=== PATIENT | female | born 1935 | race African-American/Black ===

== ENCOUNTER 2018-05-12 08:10 | Inpatient (IN) | payer OTHER ==
[2018-05-12] VITALS (32 sets, daily range): BP systolic 85–152; BP diastolic 42–83
[~2018-05-12] VITALS: Ht 160 cm; Wt 52.2 kg
--- NOTE | ~2018-05-12 | HC ---
[facility] [place] [address] CONSULTATION Name: CARUSOMEJIA PENA Room #: 242-P ADM IN M.R.#: [id number] Admission: 05/12/18 ������������������ Attend Phys: Scott Salazar MD Discharge: ������������������ Date of : 33 Report #: [id number] THIS REPORT FOR: //name// CC: Scott Salazar Physician staff [facility] HISTORY OF PRESENT ILLNESS: The patient is an 82-year-old female. She was brought in by her daughter and EMS for some progressive dyspnea and shortness of breath. I do not have any of the old records, but was apparently first diagnosed with heart failure 5 years ago at [facility]. She had been fairly stable on minimal medications until hospitalized in January for a month with heart failure and apparently some other issues, went to rehab and then home, now with the daughter. Having big issues with constipation in the last month. Saw primary care doctor, which gave her some antibiotics for a tooth pulled for emergent tooth infection a month ago and then subsequently had progressive shortness of breath recently. She is otherwise alert, oriented, relatively independent. Her chest x-ray revealing opacities in both lung due to possible pneumonia and/or pulmonary edema, cardiac enlargement and small pleural effusions. The patient's BNP is 18,000, troponin 0.41, probably a mismatch and not true ischemia. EKG exhibited sinus tachycardia. She has no history of coronary disease or prior infarcts. Apparently, there is history of heart muscle problem according to the daughter. No prior coronary interventions that the daughter is aware of. LABORATORY DATA: Potassium of 5.0, creatinine of 0.8. The BNP was 18,386. The troponin was 0.4. H and H was 11 and 36, white count 9.8, platelets 287. There was no left shift. ALLERGIES: No known drug allergies. PAST MEDICAL AND SURGICAL HISTORY: Positive for heart failure, hypertension, reflux, DJD. The daughter says no prior surgeries. SOCIAL HISTORY: She is . She has 6 children. She is living with one daughter. Was never a smoker. No significant alcohol use. REVIEW OF SYSTEMS: Not obtainable, although she is arousable. She is on BiPAP. Mildly acidotic on her blood gas. PHYSICAL EXAMINATION: GENERAL: She is arousable. VITAL SIGNS: She is on BiPAP. Pulse is 100. Blood pressure 106/60. HEENT: Eyes reveal xanthelasmas. Pharynx shows dry mucous membranes. NECK: Upstrokes that are preserved. There is a BiPAP in place. LUNGS: Somewhat coarse anteriorly. HEART TONES: Distant S1, S2, tachycardic. [facility] [address] [place] [address] CONSULTATION Name: ROSI CARUSOCYNDY Room #: [facility] ADM IN M.R.#: [id number] Admission: 05/12/18 ������������������ Attend Phys: Scott Salazar MD Discharge: ������������������ Date of : 33 Report #: [id number] ABDOMEN: Slightly protuberant, bowel sounds are noted. EXTREMITIES: Reveal trace of edema. Distal pulses diminished, but intact. NEUROLOGIC: Appears to move all extremities, but not really able to evaluate due to her somnolence. ASSESSMENT: 1. Hypoxemia, possible multifactorial. 2. Acute decompensation of probably a mixed systolic and diastolic heart failure. 3. Hypertension. 4. Possible pneumonia. 5. Degenerative joint disease. RECOMMENDATIONS AND PLAN: IV Lasix b.i.d. We will obtain an echo Doppler. In the CCU, O2 support, Pulmonary eval may be helpful. Obtain old records from [place] from the hospitalization in January-February. I do not perceive this is actually an ischemic event with significant epicardial coronary disease, but more due to the hypoxemia. I suspect this is actually multifactorial in her demise. Although she has been alert and oriented, relatively independent, she seems somewhat frail 82-year-old female. We will continue to follow with you. I should note her home medications have been lisinopril, Coreg and omeprazole. Thank you for asking me to assist in the care of this patient. ��������������������������������������������� ���������������������������������������� By: ��������������������������������������������� 1016 0024 Pk Sheth MD, FACC /nt
[2018-05-12 08:44] LABS: BE(vivo) 3.4 mmol/L (-2 to +3); HCO3 31.5 mmol/L (22.0-26.0); PCO2 67.1 mmHg (35.0-45.0); PO2 72.8 mmHg (80.0-100.0); sO2 92.4 % (92.0-98.0)
[2018-05-12 08:46] LABS: ABSOLUTE NEUTROPHILS 8.1 thou/uL (1.4-8.2); BASOPHILS 0.4 % (0.0-2.0); HEMATOCRIT 36.6 % (37.0-47.0); HEMOGLOBIN 11.3 gm/dL (12.0-15.0); LYMPHOCYTES 8.8 % (24.0-44.0); MCH 27.7 pg (26.0-34.0); MCV 89.6 fL (80.0-100.0); MONOCYTES 7.8 % (1.0-8.0); PLATELET COUNT 287 thou/uL (150-400); RBC 4.09 mil/uL (4.20-5.00); RDW 16.8 % (10.5-14.5); WBC 9.8 thou/uL (4.0-11.0)
[2018-05-12 09:02] LABS: APTT 27.5 Seconds (24.5-32.8); INR 1.1
[2018-05-12 09:04] LABS: CREATININE 0.8 mg/dL (0.6-1.0)
[2018-05-12 09:12] LABS: ALBUMIN 3.1 g/dL (3.4-5.0); MAGNESIUM 1.9 mg/dL (1.8-2.4); TOTAL BILIRUBIN 0.3 mg/dL (<0.1-1.0); TOTAL PROTEIN 9.3 g/dL (6.4-8.2); TROPONIN-I 0.41 ng/mL (<0.06)
[2018-05-12 09:41] LABS: URINE BILIRUBIN NEGATIVE (Negative); URINE BLOOD TRACE (Negative); URINE CLARITY CLEAR; URINE COLOR YELLOW; URINE GLUCOSE-RANDOM* NEGATIVE (Negative); URINE KETONES NEGATIVE (Negative); URINE NITRITE-REFLEX NEGATIVE (Negative); URINE PROTEIN (DIPSTICK) NEGATIVE (Negative); URINE UROBILINOGEN 0.2 E.U./dl (0.2-1.0)
[2018-05-12] MEDS ORDERED: LISINOPRIL5 MG PO (09:41)
[2018-05-12] MEDS ORDERED: PROTONIX40 M1 PO (09:41)
[2018-05-12] MEDS ORDERED: CARVEDILOL3.125 MG PO (09:41)
[2018-05-12] MEDS ORDERED: VENTOLIN HFA 1818 GM INH (09:41)
[2018-05-12] MEDS ORDERED: ASPIR 8181 MG PO (09:41)
[2018-05-12 09:43] LABS: URINE LEUKOCYTES-REFLEX 1+ (Negative)
[2018-05-12 09:51] LABS: CASTS None Seen /LPF (None Seen); MUCUS 0-3 Light strn/LPF (None Seen); SQUAMOUS 4-10 Moderate /LPF (0-3); URINE RBC 0-2 Rare /HPF (0-2); URINE WBC-REFLEX 6-15 Few /HPF (0-5)
[2018-05-12 09:52] LABS: AMORPHOUS URATES Moderate /LPF (None Seen)
[2018-05-12 12:01] LABS: BE(vivo) 6.5 mmol/L (-2 to +3); HCO3 37.8 mmol/L (22.0-26.0); PO2 75.3 mmHg (80.0-100.0); sO2 90.6 % (92.0-98.0)
[2018-05-12 12:02] LABS: PCO2 99.9 mmHg (35.0-45.0); pH 7.196 (7.360-7.450)
--- NOTE | 2018-05-12 12:16 | 2DMMODE ---
[facility] [address] [place] [address] 2 D/M-MODE ECHOCARDIOGRAM Name: SHADYMEJIA Room #: 242-P ADM IN .R.#: [id number] ������������� Admission: 05/12/18 ������������� Attend Phys: Scott Salazar MD Discharge: ��� ������������� ��� Date of : 31 Date of Service: 05/12/18 1215 �� Report #: [id number] �������� ��������������������������������������������[id number] THIS REPORT FOR: //name// APPROVED REPORT Study performed: 05/12/2018 11:25:25 EXAM: Comprehensive 2D, Doppler, and color-flow Echocardiogram Patient Location: Bedside Room #: 217 moving to ICU Status: routine BSA: 1.54 HR: 100 bpm BP: 138/78 mmHg Rhythm: Tachycardia Other Information Study Quality: Adequate/off axis apicals. Not all measurements taken. Technically limited study due to no mobility or patient cooperation. Patient on BiPap. Indications Short of breath, CHF, cardiomyopathy, elevated troponin, HTN. 2D Dimensions IVSd: 12.39 (7-11mm) LVOT Diam: 19.71 (18-24mm) LVDd: 41.51 mm PWd: 11.53 (7-11mm) Ascending Ao: 27.92 (22-36mm) LVDs: 33.05 (25-40mm) Aortic Root: 31.45 mm Aortic Valve AoV Peak Cosmo.: 1.35 m/s AO Peak Gr.: 7.32 mmHg LVOT Max P.16 mmHg LVOT Max V: 0.89 m/s DEBI Vmax: 2.00 cm2 Mitral Valve E/A Ratio: 1.1 MV Decel. Time: 125.44 ms MV E Max Cosmo.: 0.78 m/s MV A Cosmo.: 0.70 m/s MV PHT: 36.38 ms IVRT: 69.20 ms [facility] [address] [place] [address] 2 D/M-MODE [facility]CHOCARDIOGRAM [facility] Room #: 242-P ADM IN M.R.#: [id number] ������������� Admission: 05/12/18 ������������� Attend Phys: Scott Salazar MD Discharge: ��� ������������� ��� Date of : 31 Date of Service: 05/12/18 1215 �� Report #: [id number] �������� ��������������������������������������������[id number] Pulmonary Valve PV Peak Cosmo.: 0.68 m/s PV Peak Gr.: 1.85 mmHg Tricuspid Valve TR Peak Cosmo.: 2.55 m/s RAP Estimate: 15.00 mmHg TR Peak Gr.: 26.05 mmHg PA Pressure: 41.00 mmHg Left Ventricle The left ventricle is normal size. There is global hypokinesis of the left ventricle. Mild concentric left ventricular hypertrophy. Left ventricular systolic function is severely decreased. LVEF is 25-30%. Moderate diastolic dysfunction is present (pseudonormal filling). Right Ventricle Right ventricle is dilated. Right ventricle is hypokinetic. Atria Left atrium is dilated. Right atrium is dilated. Aortic Valve Aortic valve is thickened and calcified, trileaflet. Mild aortic regurgitation. There is no aortic valvular stenosis. Mitral Valve The mitral valve is normal in structure. Mild mitral regurgitation. No evidence of mitral valve stenosis. Tricuspid Valve The tricuspid valve is normal in structure. Moderate tricuspid regurgitation. Estimated PAP is 40mmHg. Pulmonic Valve The pulmonary valve is normal in structure. Mild to moderate pulmonic regurgitation. Great Vessels The aortic root is normal in size. The ascending aorta is normal in size. IVC is dilated and collapses <50% with inspiration. Pericardium There is no pericardial effusion. [facility] [address] [place] [address] 2 D/M-MODE ECHOCARDIOGRAM [facility] Room #: 242-P [facility] IN M.R.#: [id number] ������������� Admission: 05/12/18 ������������� Attend Phys: Scott Salazar MD Discharge: ��� ������������� ��� Date of : 31 Date of Service: 05/12/18 1215 �� Report #: [id number] �������� ��������������������������������������������[id number] <Conclusion> Left ventricular systolic function is severely decreased. LVEF is 25-30%. Moderate diastolic dysfunction Right ventricle is dilated. Both atria are dilated. Aortic valve is thickened and calcified, trileaflet. Mild aortic regurgitation, no stenosis. The mitral valve is normal in structure. Mild mitral regurgitation. Moderate tricuspid regurgitation. Estimated pulmonary artery pressure of 40mmHg. There is no pericardial effusion. ��������������������������������������������� <ELECTRONICALLY SIGNED> ���������������������������������������� By: Jigar Gordon MD, FACC ��������������������������������������������� 05/12/18 1215 14 14 Jigar Gordon MD, FACC /INF
--- NOTE | 2018-05-12 13:40 | NUR ---
PATIENT ARRIVED TO CCU FROM ER AROUND 1041. PATIENT LYING IN BED, LETHARGIC, BIPAP IN PLACE. CARROLL CATHETER PATENT AND SECURE. DAUGHTER IN WAITING ROOM. ECHO AT BEDSIDE. IV FLUIDS INFUSING PER ORDER. PATIENT WOULD AROUSE TO NAME FOR A SECOND THEN FALL BACK ASLEEP. NO WOUNDS NOTED. PATIENT DOES PULSE FEET IN THE BED. DR. JACQUES AT BEDSIDE SHORTLY AFTER PATIENT ARRIVED TO UNIT. RECEIVED ICU TRANSFER ORDERS. REPORT GIVEN AND PATIENT TRANSFERED TO ICU AROUND 1155.
--- NOTE | 2018-05-12 13:45 | NUR ---
FAMILY INFORMATION GIVEN TO THIS RN UPON ARRIVAL TO CCU. TIM CARUSO, DAUGHTER [phone] GIRMA NGUYEN [phone] KASSANDRARuben CARUSO, SON [phone] URIEL CARUSO, SON [phone] KATIE CARUSO, SON [phone] NABEEL CARUSO, DAUGHTER [phone]
--- NOTE | 2018-05-12 15:01 | NUR ---
ORDERS RECEIVED FOR EVAL AND TREAT HOWEVER Pt TRANSFERRED TO ICU PRIOR TO BEING SEEN. WILL HOLD ON EVAL UNTIL REORDERED WHEN Pt APPROPRIATE FOR THERAPY.
[2018-05-12 15:32] LABS: BE(vivo) 7.8 mmol/L (-2 to +3); HCO3 32.9 mmol/L (22.0-26.0); PCO2 48.7 mmHg (35.0-45.0); PO2 154.3 mmHg (80.0-100.0); pH 7.448 (7.360-7.450)
--- NOTE | 2018-05-12 20:01 | NUR ---
ASSUMED PATIENT CARE AT 1230 AFTER PATIENT TRANSFERRED FROM CCU. PATIENT PLACED ON THE VENTILATOR AND STARTED ON PROPOFOL GTT. OG TUBE ALSO PLACED TO LIS AND PICC LINE PLACED IN THE MONTSE. PATIENT WAS LETHARGIC UPON ARRIVING TO THE ICU. PATIENT TAKEN DOWN TO DO A HEAD/CHEST/ABDOMEN CT SCAN. SPOKESPERSONS UPDATED ON POC THROUGHOUT THE DAY.
--- NOTE | 2018-05-12 20:09 | NUR ---
PATIENT FAMILY TOOK PATIENTS THREE RINGS WITH THEM, LEOPOLDO TOOK THEM.
--- NOTE | 2018-05-12 21:16 | NUR ---
VASCULAR ACCESS CONSULTED FOR A PICC FOR THIS PT FOR PNEUMONIA AND VESICANT USE. PLEASE SEE INSERTION NOTE FOR DETAILS, 1ST PICC MALPOSITIONED, UNABLE TO REPOSITION AFTER CXR, OTW EXCHANED FOR NEW PICC WITH SUCCESSFUL PLACEMENT.
[2018-05-13] VITALS (85 sets, daily range): BP systolic 91–147; BP diastolic 46–82
[2018-05-13 04:51] LABS: HEMATOCRIT 33.7 % (37.0-47.0); HEMOGLOBIN 10.7 gm/dL (12.0-15.0); MCH 27.7 pg (26.0-34.0); MCHC 31.8 g/dL (28.0-37.0); MCV 87.1 fL (80.0-100.0); RBC 3.87 mil/uL (4.20-5.00); RDW 16.6 % (10.5-14.5); WBC 10.7 thou/uL (4.0-11.0)
[2018-05-13 04:55] LABS: CALCIUM 7.8 mg/dL (8.5-10.1); CREATININE 0.7 mg/dL (0.6-1.0)
[2018-05-13 05:04] LABS: POTASSIUM 3.3 mmol/L (3.5-5.1)
[2018-05-13 05:37] LABS: BE(vivo) 6.4 mmol/L (-2 to +3); HCO3 30.4 mmol/L (22.0-26.0); PCO2 41.2 mmHg (35.0-45.0); PO2 257.6 mmHg (80.0-100.0); pH 7.486 (7.360-7.450); sO2 99.6 % (92.0-98.0)
--- NOTE | 2018-05-13 06:30 | NUR ---
PT INTUBATED AND ON VENT; LIGHTLY SEDATED WITH PROPOFOL GTT. PT IS MORE RESPONSIVE THIS MORNING THAN EARLIER LAST NIGHT. LEVO GTT AT LOW RATE FOR BP SUPPORT. ASSESSMENTS AND VITALS DOCUMENTED. WILL CONTINUE TO MONITOR.
--- NOTE | 2018-05-13 08:48 | NUR ---
OT ORDERS RECEIVED. SINCE THEN Pt TRANSFERED TO ICU. WILL PLACE Pt ON HOLD UNTIL RE-ORDERED AND Pt IS APPROPRIATE FOR THERPAY.
--- NOTE | 2018-05-13 14:47 | HC ---
[facility] [address] [place] [address] CONSULTATION Name: SHADYMEJIA Room #: 242-P ADM IN M.R.#: [id number] Admission: 05/12/18 ������������������ Attend Phys: Scott Salazar MD Discharge: ������������������ Date of : 33 Report #: [id number] THIS REPORT FOR: //name// CC: Scott Salazar Physician staff [facility] REFERRAL PHYSICIAN: Dr. Salazar. REASON FOR REFERRAL: Acute respiratory failure. HISTORY OF PRESENT ILLNESS: The patient is an 82-year-old -[place] female who was brought to the Emergency Room with dyspnea. She was found to be very hypoxic. She was placed on BiPAP. A pulmonary consultation was requested. According to the family, she was recently hospitalized at [facility] for pneumonia around 01/2018. Since then, she has done fairly well. She lives at home with her daughter. She normally ambulates regularly. She has no known chronic lung disease that the daughter remembers. Last evening, the patient had complained of progressive dyspnea along with chest pain. It was advised the patient go to the Emergency Room last night, but the patient refused. This morning when she awoke when she complained of increasing dyspnea 911 was called. [place] [employer] brought the patient to the Emergency Department. On arrival, the patient was found to be in severe distress. BiPAP was placed. On arrival, the patient was felt to be moving all extremities, felt to be sleepy. The patient was admitted to the critical care tele. When I arrived to see the patient in consultation, she was quite difficult to arouse with sternal rub. She remains on BiPAP. Family members were present. She was subsequently transferred to the ICU. A followup arterial blood gas shows worsening hypercapnic respiratory failure. The patient was subsequently intubated. PAST MEDICAL HISTORY: Limited, but according to the family notable for recent pneumonia, hypertension, gastroesophageal reflux disease. PAST SURGICAL HISTORY: Unknown. ALLERGIES: None to medications. HOME MEDICATIONS: Include Ventolin HFA, Zestril, Protonix, Coreg, aspirin. FAMILY HISTORY: Noncontributory. [facility] [address] [place] [address] [facility] Room #: 242-P [facility] IN M.R.#: [id number] Admission: 05/12/18 ������������������ Attend Phys: Scott Salazar MD Discharge: ������������������ Date of : 33 Report #: [id number] SOCIAL HISTORY: No history of tobacco or alcohol use. She lives with her daughter. REVIEW OF SYSTEMS: As mentioned above, otherwise deferred as the patient is quite obtunded at this moment. PHYSICAL EXAMINATION: GENERAL: She is obtunded, on BiPAP. VITAL SIGNS: Temperature is 99.5 degrees Fahrenheit, pulse is 103, respiratory rate is 28, blood pressure 138/78 mmHg, saturation is 96%. HEENT: Normocephalic, atraumatic. NECK: Supple, without lymphadenopathy or thyromegaly. CHEST: Breath sounds are decreased due to poor effort. She is on BiPAP. No obvious wheezes. Few scattered crackles in the bases. CARDIOVASCULAR: Normal S1, S2. No murmurs or gallop. There is no JVD. There is no carotid bruit. Pulses are 2+/4+ bilaterally. ABDOMEN: Soft, nontender, no organomegaly or masses felt. GENITOURINARY: Deferred. RECTAL: Deferred. EXTREMITIES: There is no edema, cyanosis or clubbing. NEUROLOGIC: Deferred, other than the patient is quite obtunded at this time, no response to deep sternal rub. According to the ER records, she was apparently moving all extremities there. The patient had spoken up till this morning prior to presentation to Emergency Room. LABORATORY DATA: Chest x-ray shows small lung volumes, bilateral interstitial infiltrates, appears to be chronic, suggestive of pulmonary fibrosis, cardiomegaly. Scoliosis is noted. Portable chest x-ray following intubation revealed ET tube at the proximal lumen of the right main stem bronchus. ET tube was then pulled out about 2 cm. Echocardiogram showed ejection fraction of 25-30%, right ventricle was dilated. Pulmonary artery pressure measured 40 mmHg, mild aortic regurgitation. Both atria are dilated. Electrolytes are normal. Liver enzymes are mildly elevated. WBC 9800, hemoglobin is normal, platelets are normal. Troponin 0.4, albumin 3.1, arterial blood gas revealed pH 7.19, pCO2 99, pO2 75 on FiO2 of 50%. IMPRESSION: 1. [id number] hypercapnic hypoxic respiratory failure in this 82-year-old -[place] female. She was recently hospitalized for pneumonia. She has a history of hypertension and gastroesophageal reflux disease. Chest x-rays suggest possible pulmonary fibrosis. The patient's respiratory failure is likely due to underlying chronic lung disease, the patient appears to have chronic hypercapnic respiratory insufficiency, query COPD, query interstitial lung disease. She is also felt to [facility] [address] [place] [address] CONSULTATION Name: MEJIA CARUSO Room #: 284-P ADM IN Harini#: [id number] Admission: 05/12/18 ������������������ Attend Phys: Scott Salazar MD Discharge: ������������������ Date of : 33 Report #: [id number] have heart failure, which is likely contributing. With mental status change, it is unclear whether she may have cerebrovascular accident. 2. Recent hospitalization for pneumonia in January. Cannot rule out superimposed infectious process. Cover for nosocomial infections. 3. Severe cardiomyopathy with ejection fraction 30-35%, with elevated troponin, likely ischemic. The patient likely has an underlying coronary artery disease. Cardiology has been consulted. EKG shows no acute changes. Myocardial stress demand may be underlying cause for elevated troponin. 4. History of hypertension. 5. Gastroesophageal reflux disease. 6. Generalized weakness with what appears to be muscle atrophy. RECOMMENDATION: As mentioned above. The patient was urgently intubated due to worsening hypercapnic respiratory failure. She was treated for recurrent infectious process covering nosocomial infections. Bronchodilators along with corticosteroids will be initiated along with DVT and GI prophylaxis. In regards to encephalopathy, may relate to severe sepsis; however, cannot rule out other processes such of cerebrovascular accident. Recommend CT head. In terms of profound hypoxia, pulmonary embolus felt to be less likely though this needs to be considered as her presenting arterial blood gas showed pO2 of 72 while on 100% FiO2. CT chest would also help delineate possible interstitial lung disease. This was discussed with the patient's family including her daughter. It appears that the daughter may have a hard time registering all this information and clinical change. We will keep them updated. Thank you for this consultation. ��������������������������������������������� <ELECTRONICALLY SIGNED> ���������������������������������������� By: Marquez Williamson MD ��������������������������������������������� 05/13/18 1447 1442 0243 Marquez Williamson MD /nt
[2018-05-13 19:44] LABS: MAGNESIUM 1.6 mg/dL (1.8-2.4)
[2018-05-13 19:45] LABS: POTASSIUM 2.9 mmol/L (3.5-5.1)
--- NOTE | 2018-05-13 19:52 | NUR ---
CALL LABS RESULT OF POTASSIUMAND MAGNESIUM LEVEL TO NEVIN CUEVA; ORDER KCL 60 MEQ IVP AND 2 GM OF MAGNESIUM IV X 1.
--- NOTE | 2018-05-13 22:22 | NUR ---
Family visited, updates plans of cares to her daughter Albert.
[2018-05-14] VITALS (51 sets, daily range): BP systolic 102–145; BP diastolic 39–73
[2018-05-14 04:59] LABS: CALCIUM 7.6 mg/dL (8.5-10.1); CREATININE 0.6 mg/dL (0.6-1.0); MAGNESIUM 2.3 mg/dL (1.8-2.4); POTASSIUM 3.6 mmol/L (3.5-5.1)
--- NOTE | 2018-05-14 05:05 | NUR ---
CLIENT REMAINS IN THE ICU FOR RESP FAILURE AND LOWER LOBE PNEUMONIA. CLIENT CARE ASSUMED 05/13/18 @ 2230. CLIENT INTUBATED AND SEDATED FOR VENT MANAGEMENT. CLIENT IS ABLE TO NOD Y/N WHEN ASKED QUESTIONS. CLIENT IS SINUS RHYTHM W/OCC PVCS PER MONITOR. CLIENT RECIEVES LASIX IVP BID. VENT SETTINGS ARE 7.5 ET, 21.5 ATT, NPO W/Q6HR ACCU CHECKS AND LOW DOSE SSI. CLIENT OG TO LIS, CARROLL TO DD AND SKIN IS INTACT. THE CLIENT RECEIVED 40MEQ OF KCL FOR LOW K+ OF 2.9. CLIENT HAS MAINT FLUID INFUSING @ 80ML/HR PER PHYSICIAN ORDER. PLEASE SEE [employer] FOR ANY ADDITIONAL QUESTION AND/OR CONCERNS. AFIBRILE DURING THE NIGHT.
--- NOTE | 2018-05-14 13:19 | EKG ---
[address] [address] ELECTROCARDIOGRAM REPORT Name: MEJIA CARUSO Room #: 242-P ADM IN M.R.#: [id number] ������������������ Admission: 05/12/18 ������������������ Attend Phys: Scott Salazar MD Discharge: ������������������ Date of : 33 Report #: [id number] ����������������������������������������������������������������� [id number] THIS REPORT FOR: //name// [facility] ED Test Date: 2018-05-12 Test Time: 08:51:36 Pat Name: MEJIA CARUSO Department: Room: 242 Gender: F Wind Project Manager: mckinley : 1935 Requested By: Leander Cobb Order Number: [id number] MD: Jigar Gordon Measurements Intervals [place] Rate: 109 P: 65 NV: 161 QRS: -33 QRSD: 90 T: 120 QT: 324 QTc: 437 Interpretive Statements Sinus tachycardia Probable left atrial enlargement Left ventricular hypertrophy Nonspecific T abnormalities, lateral leads No previous ECG available for comparison Electronically Signed On 05-14-2018 13:19:22 CDT by Jigar Gordon [email or web address] ��������������������������������������������� <ELECTRONICALLY SIGNED> ���������������������������������������� By: Jigar Gordon MD, [facility] ��������������������������������������������� 05/14/18 1319 D: [id number] Jigar Gordon MD, FACC /EPI
--- NOTE | 2018-05-14 13:31 | EKG ---
[address] [place] [address] ELECTROCARDIOGRAM REPORT Name: MEJIA CARUSO Room #: 242-P ADM IN M.R.#: [id number] ������������������ Admission: 05/12/18 ������������������ Attend Phys: Scott Salazar MD Discharge: ������������������ Date of : 33 Report #: [id number] ����������������������������������������������������������������� [id number] THIS REPORT FOR: //name// [facility] Test Date: 2018-05-13 Test Time: 09:20:31 Pat Name: MEJIA CARUSO Department: Room: 242 P Gender: F Wiping Rag Washer: DAMIEN : 1935 Requested By: Pk Sheth Order Number: [id number] MD: Jigar Gordon Measurements Intervals [place] Rate: 67 P: 75 [place]: 144 QRS: -26 QRSD: 96 T: 197 QT: 434 QTc: 458 Interpretive Statements Sinus rhythm Atrial premature complex Abnrm T, consider ischemia, anterolateral lds No previous ECG available for comparison Electronically Signed On 05-14-2018 13:31:36 CDT by Jigar Gordon [email or web address] ��������������������������������������������� <ELECTRONICALLY SIGNED> ���������������������������������������� By: Jigar Gordon MD, [facility] ��������������������������������������������� 05/14/18 1331 D: 03/919 9 Jigar Gordon MD, FACC /EPI
[2018-05-15] VITALS (26 sets, daily range): BP systolic 111–166; BP diastolic 49–81
[2018-05-15 04:10] LABS: CALCIUM 6.3 mg/dL (8.5-10.1); CREATININE 0.4 mg/dL (0.6-1.0)
[2018-05-15 04:13] LABS: POTASSIUM 2.4 mmol/L (3.5-5.1)
[2018-05-15 05:13] LABS: HEMATOCRIT 28.5 % (37.0-47.0); MCH 27.9 pg (26.0-34.0); MCHC 31.7 g/dL (28.0-37.0); RBC 3.24 mil/uL (4.20-5.00); RDW 16.7 % (10.5-14.5); WBC 4.8 thou/uL (4.0-11.0)
[2018-05-15 05:17] LABS: BE(vivo) 0.8 mmol/L (-2 to +3); HCO3 24.1 mmol/L (22.0-26.0); PCO2 34.2 mmHg (35.0-45.0); PO2 433.9 mmHg (80.0-100.0); pH 7.466 (7.360-7.450); sO2 99.9 % (92.0-98.0)
--- NOTE | 2018-05-15 06:26 | NUR ---
PT. SLEEPING AT BED SIDE REPORT; PT ON VENTILATOR; PROPOFOL RUNNING AT 25 MCG/KG/HR; ALERT TO PERSON; ANSWER YES/ NO QUESTION; AROUND 2029 RELATIVES ARRIVED AT BED SIDE; PT. ANSWERING Y/N QUESTIONS TO RELATIVES; VS WNL THROUGH THE NIGHT; HR ON THE 50'S- LOW 40'S; PROPOFOL TITRATE FROM 25 TO 15; FOUZIA HAIR SPRING WINDER SR/SB WITH FEW PVC'S; POTASSIUM 2.4; NO NOTIFIED; ORDERS RECEIVED; TURNED Q2H; MOUTH CARE PROVIDED; ASSESSMENT CHARGED; FOLLOWING POC; WILL PASS ON REPORT.
--- NOTE | 2018-05-15 10:48 | NUR ---
Nutrition: Pt npo x 3 days in ICU. Nsg reports low output from NG. REC consider initiate tube feeds of Jevity 1.5 to reach goal rate of 40 mL/hr with current dosing of propofol.
[2018-05-15 15:09] LABS: CALCIUM 7.6 mg/dL (8.5-10.1); CREATININE 0.5 mg/dL (0.6-1.0); POTASSIUM 3.4 mmol/L (3.5-5.1)
--- NOTE | 2018-05-15 18:34 | NUR ---
PATIENT ON LIGHT SEDATION, ABLE TO FOLLOW SIMPLE COMMANDS. SINUS BRADYCARDIA ON MAINTENANCE AND CUSTODIAN SUPERVISOR. ON 30%FIO2. TUBE FEEDINGS STARTED, PATIENT TOLERATING. CARROLL PATENT WITH ADEQUATE OUTPUT. BLOOD SUGAR MONITORED. FAMILY AND PATIENT UPDATED ON THE PLAN OF CARE. NO SIGNS OF ACUTE DISTRESS NOTED AT THIS TIME. WILL CONTINUE TO MONITOR.
[2018-05-16] VITALS (32 sets, daily range): BP systolic 118–156; BP diastolic 51–82
[2018-05-16 05:35] LABS: HEMATOCRIT 32.6 % (37.0-47.0); HEMOGLOBIN 10.1 gm/dL (12.0-15.0); MCH 27.2 pg (26.0-34.0); MCHC 31.1 g/dL (28.0-37.0); MCV 87.4 fL (80.0-100.0); RBC 3.73 mil/uL (4.20-5.00); RDW 16.7 % (10.5-14.5); WBC 4.9 thou/uL (4.0-11.0)
[2018-05-16 05:40] LABS: CALCIUM 7.4 mg/dL (8.5-10.1); CREATININE 0.5 mg/dL (0.6-1.0); POTASSIUM 3.2 mmol/L (3.5-5.1)
--- NOTE | 2018-05-16 07:18 | NUR ---
PT LIGHTLY SEDATED ON PROPOFOL, FOLLOWS COMMANDS. VENT SETTINGS UNCHANGED, ADEQUATE OXYGENATION. SR TO SB ON THE MONITOR, OTHER VITALS STABLE. PT TOLERATING TUBE FEEDINGS.URINE OUTPUT 300 OVERNIGHT.IVF INFUSING.
[2018-05-16 08:58] LABS: BE(vivo) 5.9 mmol/L (-2 to +3); HCO3 30.4 mmol/L (22.0-26.0); PCO2 44.1 mmHg (35.0-45.0); PO2 101.4 mmHg (80.0-100.0); pH 7.457 (7.360-7.450); sO2 97.9 % (92.0-98.0)
--- NOTE | 2018-05-16 18:18 | NUR ---
PATIENT ALERT AND ORIENTED, ON LIGHT SEDATION. SINUS RHYTHM TO SINUS BRADYCARDIA ON HORSES OR MULES TEAMSTER. ON VENTILATIOR 30% FIO2. WEANING TRIAL COMPLETED TODAY, PATIENT TOLERATED WELL. TUBE FEEDINGS AT GOAL RATE. CARROLL PATENT AND DRAINING. BLOOD SUGAR MONITORED. PATIENT ABLE TO WRITE NEEDS/CONCERNS, FOLLOWS COMMANDS APPROPRIATELY. FAMILY AND PATIENT UPDATED ON THE PLAN OF CARE. NO SIGNS OF ACUTE DISTRESS NOTED AT THIS TIME. WILL CONTINUE TO MONITOR.
[2018-05-17] VITALS (30 sets, daily range): BP systolic 98–141; BP diastolic 51–96
[2018-05-17 05:24] LABS: BE(vivo) 5.7 mmol/L (-2 to +3); HCO3 30.1 mmol/L (22.0-26.0); PCO2 43.3 mmHg (35.0-45.0); sO2 97.9 % (92.0-98.0)
[2018-05-17 06:46] LABS: ABSOLUTE NEUTROPHILS 4.3 thou/uL (1.4-8.2); BASOPHILS 0.1 % (0.0-2.0); HEMATOCRIT 32.5 % (37.0-47.0); HEMOGLOBIN 10.2 gm/dL (12.0-15.0); LYMPHOCYTES 12.6 % (24.0-44.0); MCH 27.6 pg (26.0-34.0); MCHC 31.3 g/dL (28.0-37.0); MCV 88.2 fL (80.0-100.0); MONOCYTES 6.9 % (1.0-8.0); PLATELET COUNT 231 thou/uL (150-400); POLYS 80.4 % (36.0-66.0); RBC 3.69 mil/uL (4.20-5.00); WBC 5.3 thou/uL (4.0-11.0)
[2018-05-17 06:56] LABS: APTT 25.5 Seconds (24.5-32.8); FIBRINOGEN 255.1 mg/dL (210-360); INR 1.1; PROTIME 11.7 Seconds (9.3-11.4)
[2018-05-17 07:07] LABS: CALCIUM 7.6 mg/dL (8.5-10.1); CREATININE 0.5 mg/dL (0.6-1.0); POTASSIUM 3.7 mmol/L (3.5-5.1)
--- NOTE | 2018-05-17 17:00 | NUR ---
PT ADMITTED RELATED TO CHF, PNEUMONIA, RESP FAILURE. CM REVIEWED CHART AND SPOKE WITH CARE TEAM. CM MET WITH PT AT BEDSIDE THIS DAY PT IS ON VENT BUT IS ABLE TO COMMUNICATE BY NODDING AND WRITING. CM ROLE INTRODUCED. PT INDICATED THAT HER PCP AND CONTACTS WERE CORRECT. PT ASKED THAT CM CONTACT HER DTR TIM. CM CALLED TIM AND SHE INDICATED THAT PT HAD BEEN STAYING WITH HER AT HER HOUSE IN [facility] [employer] SHE INDICATED THAT PRIOR TO THAT PT HAD LIVED INDEPENDENTLY IN [place]. TIM INDICATED THAT THERE ARE 5 STEPS TO ENTER THE HOME AND 12 STEPS INSIDE. SHE INDICATED THAT PT HAD RECENTLY BEEN ON SERVICE WITH [facility]. SHE INDICATED PT HAD USED A CANE TO ASSIST WITH MOBILITY ORGANIC SEARCH LEAD. TIM INDICATED THAT THEY HOPE THAT PT WILL BE ABLE TO RETURN HOME WITH HER ONCE MEDICALLY STABLE. CM TO FOLLOW INDICATED WITH DC PLANNING.
--- NOTE | 2018-05-17 19:14 | NUR ---
PATIENT ALERT AND ORIENTED, ABLE TO WRITE OUT NEEDS. PROPOFOL OFF SINCE NOON. SINUS RHYTHM/SINUS BRADYCARDIA ON BRICK LOADER. ON VENTILATOR, FIO2 30%. TOLERATING TUBE FEEDING GOAL RATE. CARROLL PATENT AND ADEQUATE OUTPUT. FAMILY AND PATIENT UPDATED ON THE PLAN OF CARE. NO SIGNS OF ACUTE DISTRESS NOTED AT THIS TIME. WILL CONTINUE TO MONITOR.
[2018-05-18] VITALS (24 sets, daily range): BP systolic 118–151; BP diastolic 51–81
--- NOTE | 2018-05-18 00:05 | NUR ---
Multiple family members visited pt julián. They are concerning of her bx result which is pending and when she will be able to extubates. I have updates plans of cares and treatments to her daughters.
[2018-05-18 04:41] LABS: HEMATOCRIT 33.6 % (37.0-47.0); HEMOGLOBIN 10.4 gm/dL (12.0-15.0); MCH 27.2 pg (26.0-34.0); MCV 87.8 fL (80.0-100.0); RBC 3.82 mil/uL (4.20-5.00); WBC 6.9 thou/uL (4.0-11.0)
[2018-05-18 04:46] LABS: CALCIUM 7.9 mg/dL (8.5-10.1); CREATININE 0.5 mg/dL (0.6-1.0); POTASSIUM 3.3 mmol/L (3.5-5.1)
--- NOTE | 2018-05-18 05:40 | NUR ---
P remains stable in this shift. No sedative are given in this shift. Continue to be on vent. She seems to be syed very well. Very little secretion via ETT. Syed TF very well, no bowel movement atleast 5 days per record. She denies of any N/V. ABD mildly distended. VSS. Continue to monitor any changes.
--- NOTE | 2018-05-18 18:40 | NUR ---
PATIENT ALERT, ABLE TO FOLLOW COMMANDS AND WRITE OUT NEEDS. SINUS RHYTHM/BRADYCARDIA ON WELDER APPRENTICE COMBINATION. ON VENTILATOR RESTING COMFORTABLLY, FIO2 30%. TOLERATING TUBE FEEDINGS. CARROLL PATENT AND DRAINING. BLOOD SUGAR MONITORED. PATIENT AND FAMILY UPDATED ON THE PLAN OF CARE, NO SIGNS OF ACUTE DISTRESS NOTED AT THIS TIME. WILL CONTINUE TO MONITOR.
[2018-05-19] VITALS (24 sets, daily range): BP systolic 118–164; BP diastolic 55–96
--- NOTE | 2018-05-19 03:14 | NUR ---
ASSUMED CARE OF PATIENT AT 1900. VSS, AFEBRILE. ALERT AND ORIENTED. ANSWERS QUESTIONS APPROPRIATELY, FOLLOWS COMMANDS. ABLE TO ASSIST WITH TURNS. FAMILY AT BEDSIDE, UPDATED BRIEFLY. BATH GIVEN, TURNED Q2. PLAN TO REMOVE RESTRAINTS IN AM IF PATIENT ABLE TO REMAIN COOPERATIVE AND NOT IMPULSIVE.
[2018-05-19 05:29] LABS: BE(vivo) 9.3 mmol/L (-2 to +3); HCO3 33.9 mmol/L (22.0-26.0); PCO2 46.3 mmHg (35.0-45.0); PO2 116.9 mmHg (80.0-100.0); pH 7.483 (7.360-7.450); sO2 98.5 % (92.0-98.0)
[2018-05-19 09:25] LABS: CALCIUM 8.4 mg/dL (8.5-10.1); CREATININE 0.6 mg/dL (0.6-1.0); POTASSIUM 3.5 mmol/L (3.5-5.1)
--- NOTE | 2018-05-19 10:07 | PATH ---
[facility] [place] [address] PATHOLOGY RPT PROCEDURE Name: CARUSOMEJIA MCKENZIE Room #: 242-P ADM IN M.R.#: [id number] ������������������ Admission: 05/12/18 ������������������ Date of : 31 Discharge: Report #: [id number] Path Case #: [id number] [facility] Accession Number: [id number] . 01 Material submitted: . LT THYROID . 01 Clinical history: . CHF, pneumonia, resp failure . 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 - Negative for nuclear features of papillary thyroid carcinoma. (IUV:flight coordinator; 05/18/2018) MBR/05/18/2018 . 02 Comment: The differential diagnosis includes a mixed colloid nodule with predominant Hurthle cell features, a Hurthle cell adenoma, as well as mixed macro and microfollicular adenoma with focal Hurthle cell features. Please note nature of this sample precludes evaluation for follicular carcinoma. Sample may not be entirely territory account representative. Correlate clinically and followup as indicated. (IUV:flight coordinator; 05/18/2018) . 02 Electronically signed: . Cassy Castro MD, Pathologist NPI- [id number] . 01 Gross description: . The specimen is received in formalin, labeled "CarusoBella mckenziesheldon, Lt thyroid" and consists of a few delicate needle cores of foss tissue measuring 0.8 x 0.1 x 0.1 cm which are entirely submitted in A1. (SDY; 05/17/2018) SYU/SYU . 02 Pathologist provided ICD-10: E07.89 . 02 CPT . 258470 Specimen Comment: A courtesy copy of this report has been sent to Specimen Comment: [phone], . Specimen Comment: Report sent to / DR MAC Specimen Comment: A duplicate report has been [place] [address] PATHOLOGY RPT PROCEDURE Name: MEJIA CARUSO Room #: 242-P [facility] IN M.R.#: [id number] ������������������ Admission: 05/12/18 ������������������ Date of : 33 Discharge: Report #: [id number] Path Case #: [id number] updates. Performed at: 01 [facility] [address], [place], [place] [id number] MD Kris Davis MD Phone: [phone] Performed at: [address] [id number] MD Cassy Castro MD Phone: [phone]
--- NOTE | 2018-05-19 13:08 | PATH ---
[facility] [address] [place] [address] PATHOLOGY RPT PROCEDURE Name: MEJIA CARUSO Room #: 242-P ADM IN M.R.#: [id number] ������������������ Admission: 05/12/18 ������������������ Date of : 33 Discharge: Report #: [id number] Path Case #: [id number] Note LCA Accession Number: [id number] TESTS RESULT FLAG UNITS REF RANGE LAB Clinician Provided Cytology Information No. of containers..01 Other (Miscellaneous) Source: NECK FNA DIAGNOSIS: NECK FNA INCONCLUSIVE. BETHESDA CATEGORY III. FOLLICULAR LESION OF UNDETERMINED SIGNIFICANCE. SPECIMEN CONSISTS OF SCANT FOLLICULAR CELLS WITH SCANT COLLOID. THE DIFFERENTIAL DIAGNOSIS INCLUDES CELLULAR ADENOMATOID NODULE AND FOLLICULAR NEOPLASM. THIS INTERPRETATION INCLUDES EVALUATION OF A CELL BLOCK. Comment: Examination shows scant cells present on air-dried smears. The follicular cells are present in microfollicles and show Hurthle cell morphology. Scant dense colloid is identified. Nuclear features of papillary thyroid carcinoma are not present. The differential diagnosis includes an adenomatoid nodule with focal Hurthle cell change, a Hurthle cell adenoma as well as a carcinoma. Nature of this specimen precludes evaluation for a carcinoma. Please note sample may not be field representatives director. Correlate clinically and follow-up as indicated. The portion of specimen received in the RNA Retain Vial is sent for molecular analysis per protocol due to the diagnosis rendered. A separate report will follow; refer to the same. The concurrent needle core biopsy tissue, [id number] showed similar findings. refer to a separate report for details. This case was coreviewed by Dr. Huan Bourgeois who concurs with my interpretation. Pathologist ICD10: 02 R89.6, E04.1 Signed out by: Cassy Castro MD, Pathologist NPI- [id number] Performed by: Trini Martel, Border Patrol Officer ([facility]) Gross description: 01 20ML, RED, CLOUDY /LCS FLAG LEGEND: L-Low Normal,H-High Normal,LL-Alert Low,HH-Alert High <-Panic Low,>-Panic High,A-Abnormal,AA-Critical Abnormal [address] [address] PATHOLOGY RPT PROCEDURE Name: MEJIA CARUSO Room #: 242-P ADM IN M.R.#: [id number] ������������������ Admission: 05/12/18 ������������������ Date of : 33 Discharge: Report #: [id number] Path Case #: [id number] Performed at: [address] [place] [address] Kris Davis MD, [address] [address] Cassy Castro MD, Specimen Comment: A courtesy copy of this report has been sent to Specimen Comment: [phone], . Specimen Comment: Report sent to / DR MAC Performed at: [address], [place], [place] [id number] MD Kris Davis MD Phone: [phone]
--- NOTE | 2018-05-19 18:22 | NUR ---
PATIENT ALERT AND ORIENTED X4, NO COMPLAINTS OF PAIN. ON ROOM AIR. TOLERATING MECHANICAL GROUNDED DIET. CARROLL PATIENT AND DRAINING. PATIENT EXTOBATED AT 0925, NO SIGNS OF RESPIRATORY DISTRESS. DISCUSSED THE PLAN OF CARE WITH PATIENT AND FAMILY. DR. LOPEZ NOTIFIED THAT FAMILY WOULD LIKE TO MEET ON 05/20/18 TO DISCUSS FURTHER PLANNING. NO SIGNS OF ACUTE DISTRESS NOTED AT THIS TIME. WILL CONTINUE TO MONITOR.
[2018-05-20] VITALS (15 sets, daily range): BP systolic 126–154; BP diastolic 56–119
[2018-05-20 06:46] LABS: CALCIUM 8.7 mg/dL (8.5-10.1); CREATININE 0.6 mg/dL (0.6-1.0)
--- NOTE | 2018-05-20 07:46 | NUR ---
PT HAD RESTFUL NIGHT. PT REMAINED ON RA FOR MAJORITY OF SHIFT BUT REQUIRED 2L NC AROUND 0530 FOR SATS 70-80S BUT CARRYING ON CONVERSATION STATING SHE FELT FINE. PT CONTINUED WITH RECEIVING IV ABX TREATMENTS. AM LABS REVIEWED. SR ON MONITOR.
--- NOTE | 2018-05-20 13:49 | NUR ---
PT ARRIVED ON UNIT FROM ICU AT 1300. PT ALERT XS 4 LUNGS CTA BS XS4. CARROLL CATH WITH CLEAR YELLOW URINE IN CARROLL BAG. ROOM AIR NO COUGH OR RESP DISTRESS. PT EATING [facility] GROUND DIET LUNCH HAS THIN LIQUIDS. PT PLEASANT AND COOPERATIVE WITH CARE.
[2018-05-21 03:00] VITALS: BP 143/68
--- NOTE | 2018-05-21 03:04 | NUR ---
PT LYING IN BED. DENIES PAIN. RESTING COMFORTABLY. NO NEEDS VOICED. CALL LIGHT WITHIN REACH. WILL CONTINUE TO PROVIDE FREQUENT OBSERVATION.
[2018-05-21 08:14] LABS: CALCIUM 8.8 mg/dL (8.5-10.1); CREATININE 0.7 mg/dL (0.6-1.0); POTASSIUM 3.4 mmol/L (3.5-5.1)
[2018-05-21 09:17] LABS: HEMATOCRIT 37.8 % (37.0-47.0); MCH 27.5 pg (26.0-34.0); MCHC 31.7 g/dL (28.0-37.0); MCV 86.9 fL (80.0-100.0); RBC 4.35 mil/uL (4.20-5.00); RDW 16.9 % (10.5-14.5); WBC 6.5 thou/uL (4.0-11.0)
--- NOTE | 2018-05-21 11:24 | NUR ---
CARROLL CATH DCD AT THIS TIME HAD 900 CC IN CARROLL BAG
[2018-05-21 19:22] VITALS: BP 120/57
--- NOTE | 2018-05-22 05:18 | NUR ---
PT. AOX4; RELATIVE AT THE BED SIDE DURING REPORT; DURING ASSESSMENT NO C/O PAIN; EATING SNACK; EXPLAINED HS MEDICATION; ABLE TO REST MOST OF THE NIGHT WITH EYES CLOSE; AROUND MIDNIGHT PT ASKED IF NEED TO VOID; ST "NO"; AT 0300 PT. CHECKED; BED WET; BED CHANGE; HAD SMALL BM; SOFT; BROWN; NO C/O PAIN THROUGH THE NIGHT; ASSESSMENT CHARGED; FOLLOWING POC; WILL PASS ON REPORT.
[2018-05-22 05:19] VITALS: BP 132/52
[2018-05-22 05:46] LABS: CALCIUM 7.5 mg/dL (8.5-10.1); CREATININE 0.6 mg/dL (0.6-1.0); MAGNESIUM 1.7 mg/dL (1.8-2.4)
[2018-05-22 05:51] LABS: POTASSIUM 2.7 mmol/L (3.5-5.1)
[2018-05-22 05:53] LABS: HEMOGLOBIN 10.7 gm/dL (12.0-15.0); MCH 27.8 pg (26.0-34.0); MCHC 31.5 g/dL (28.0-37.0); MCV 88.1 fL (80.0-100.0); RBC 3.85 mil/uL (4.20-5.00); RDW 17.3 % (10.5-14.5); WBC 6.3 thou/uL (4.0-11.0)
--- NOTE | 2018-05-22 09:10 | NUR ---
PT IS A&0X4, VERY [place], USES CALL LIGHT FOR NEEDS, TURN Q2H YET SHE DOES MAKE SOME POSIION CHANGES HERSELF. STRONG GIP, GOOD APPETITE, LAST BM TODAY, C/O GENERALIZED ALL OVER PAIN, HAS TRIPLE LUMEN PICC LINE W/K+RUNNING. WILL DRAW LABS HOUR P THIS RUN
--- NOTE | 2018-05-22 14:35 | NUR ---
Nutrition: Pt seen for F/U. Extubated, no longer in ICU or on TF. Diet advanced to mechanically altered ground. Reports good appetite, intake 25-50%, however nsg reports >50%. Current wt 115 lbs, UBW 115-120 lbs. Requested Ensure, will order. Otherwise, moving to low nutrition risk.
[2018-05-22 14:53] VITALS: BP 128/78
--- NOTE | 2018-05-22 17:39 | NUR ---
spoke with patient and son present. Patient unable to work with therapy today. She reports she is staying at [facility], her dtr. She reports Albert works nights and grandson stays with her. She hopes to dc home but appears open to post acute care. she has been at [facility] in past. However now that staying at [facility] possible post acute care close to her [facility], [facility]. Therapy evals in process.
--- NOTE | 2018-05-22 19:23 | NUR ---
GAVE REPORT TO JOANIE ON PT AND TRANSFERRED DOWNSTAIRS IN W/C ACCOMPANIED B SON, CHART, AND MED BIN MEDS. PLACED HOLD ACKNOWLEDGE ON HER MAGNESIUM ABOUT AN HOUR PRIOR. ZOYSN RUNNING VIA PICC LINE. K+ HELD PER DR JOHNSON WITH NURSE DRAW AT 20:00 FOR ANOTHER CHECK. PT FINISHED UP MEAL BEFORE SHE WENT DOWN TO SICU.
[2018-05-22 19:45] VITALS: BP 139/68
[2018-05-22 19:59] LABS: CALCIUM 9.3 mg/dL (8.5-10.1); CREATININE 0.8 mg/dL (0.6-1.0); POTASSIUM 3.9 mmol/L (3.5-5.1)
--- NOTE | 2018-05-23 05:11 | NUR ---
Assumed pt. care at 1900. Pt remains A&Ox4; Swallows meds whole w/o difficulty. Remains cont. B&B. Ambulates to bathroom w/ stand by asst and asst of walker; gait unsteady. Blood sugars WNL. Remains on lovenox therapy; no s/s of bleeding noted. Continues on IVABT; no adverse reactions noted. Triple lumen noted to RUE; Infused ABT/flushed w/o difficulty. Breathing txs, as ordered, w/o difficulty. Small BM noted on this shift. Patient has no c/o pain or discomfort. No s/s of acute distress noted. Po fluids encouraged. Will continue to monitor.
[2018-05-23 06:34] LABS: HEMATOCRIT 35.4 % (37.0-47.0); HEMOGLOBIN 11.1 gm/dL (12.0-15.0); MCH 27.6 pg (26.0-34.0); MCHC 31.3 g/dL (28.0-37.0); MCV 88.1 fL (80.0-100.0); RBC 4.01 mil/uL (4.20-5.00); WBC 9.5 thou/uL (4.0-11.0)
[2018-05-23 06:44] LABS: CALCIUM 8.9 mg/dL (8.5-10.1); CREATININE 0.6 mg/dL (0.6-1.0); POTASSIUM 4.2 mmol/L (3.5-5.1)
[2018-05-23 07:28] VITALS: BP 144/69
--- NOTE | 2018-05-23 10:37 | NUR ---
ZULEYKA reviewed chart and spoke with nursing and attending physician. [facility] and is progressing towards goals for discharge. Recommendation made for pt to go to post-acute for continued rehab services and medical mgmt. ZULEYKA spoke with pt's dtr, Albert, via phone to provide update and discuss post-acute placement. ZULEYKA reviewed in-network SNF list with Albert. Albert requests referral to be sent to [facility] due to location. operations planner to send referral. Will need insurance authorization. ZULEYKA is following to assist as needed with discharge planning.
--- NOTE | 2018-05-23 12:43 | NUR ---
ASSUMED CARE OF PATIENT THIS MORNING. PATIENT IS A&OX4. SHE IS HARD OF HEARING. PATIENT GETS UP WITH MINIMUM ASSIST AND WALKER. SHE DOES NOT COMPLAIN OF ANY PAIN. SHE WORKS WITH THERAPY TO HELP WITH HER MOBILITY. SHE IS ON A LOW DOSE SLIDING SCALE FOR INSULIN WHICH SHE RECEIVES SINCE SHE'S ON STERIODS. SHE HAS A RIGHT PICC TRIPLE LUMEN AND RECEIVES IV ANTIBIOTIC THERAPY. FALL PRECAUTIONS ARE IN PLACE FOR THE PATIENT. SHE CALLS OUT APPROPRIATELY FOR ASSISTANCE. SHE IS CURRENTLY SITTING IN CHAIR WITH BELONGINGS WITHIN REACH.
--- NOTE | 2018-05-23 15:39 | NUR ---
planner internship faxed a snf referral to [facility], patient likely to discharge tomorrow. financial planner contacted Aman at facility to let her know of incoming referral.
--- NOTE | 2018-05-23 20:36 | NUR ---
I AGREE WITH NURSING ASSESSMENT DONE BY VALERI/CAROLANN.
--- NOTE | 2018-05-24 05:22 | NUR ---
Assumed pt. care at 1900. Pt. remains A&Ox4; swallows meds whole w/o difficulty. Remains cont. B&B; ambulates to BSC w/ stand by asst and asst of walker; gait unsteady. Blood sugars WNL. Remains on lovenox therapy; no s/s of bleeding noted. Remains on IVABT/Pneumonia; no adverse reactions noted. Triple lumen PICC noted to RUE; infused ABT/flushed w/o difficulty. Non - productive cough noted. Pt denies pain or discomfort. No s/s of acute distress noted. Pt. asleep in bed w/ call light/desired belongings within reach. PO fluids encouraged. Will continue to monitor.
[2018-05-24 06:50] LABS: HEMOGLOBIN 11.2 gm/dL (12.0-15.0); MCH 27.9 pg (26.0-34.0); MCHC 31.9 g/dL (28.0-37.0); MCV 87.4 fL (80.0-100.0); RBC 4.01 mil/uL (4.20-5.00); RDW 17.5 % (10.5-14.5); WBC 8.9 thou/uL (4.0-11.0)
[2018-05-24 07:05] LABS: CALCIUM 8.7 mg/dL (8.5-10.1); CREATININE 0.6 mg/dL (0.6-1.0); MAGNESIUM 2.2 mg/dL (1.8-2.4)
[2018-05-24 08:30] VITALS: BP 133/67
--- NOTE | 2018-05-24 10:26 | NUR ---
ZULEYKA reviewed chart and spoke with nursing. [facility] has accepted pt from a clinical standpoint. SW has not heard back from [facility] at this time. Will need insurance authorization for SNF placement. [facility] requesting OT notes. Reviewed chart and spoke with nursing and attending physician. Pt is progressing towards goals for discharge. OT eval ordered today. OT varianced pt on 05/12 when pt was in ICU. SW contacted therapy mgr to request OT eval to be completed SURESH. ZULEYKA spoke with pt's dtr, Albert, via phone to provide update. Pt's dtr states that [facility] is their preference at this time. Chart copy requested. SW is following to assist as needed with discharge planning.
--- NOTE | 2018-05-24 11:10 | NUR ---
ASSUMED PATIENT AND CARES AT 0715, PATIENT SITTING PARTIALLY UP RIGHT IN BED WATCHING TV, DENIES PAIN AND DISCOMFORT, TRIPLE LUMEN PICC TO RUE INTACT AND PATENT WITH ZOSYN INFUSING, FALL PRECAUTIONS IN PLACE, SBA WITH WALKER AND BSC, PERSONAL BELONGINGS AND CALL LIGHT IN REACH, WILL CONTINUE TO MONITOR
--- NOTE | 2018-05-24 11:46 | NUR ---
senior production planner sent ot notes for today to [facility]
[2018-05-24] MEDS ORDERED: MIRALAX17 GM PO (15:16)
[2018-05-24] MEDS ORDERED: SPIRONOLACTONE25 M1 PO (15:16)
[2018-05-24] MEDS ORDERED: LASIX 20 MG TAB20 MG PO (15:16)
[2018-05-24] MEDS ORDERED: IPRAT-ALBUT 0.5-3 ML INH (15:16)
[2018-05-24] MEDS ORDERED: COREG6.25 MG PO (15:21)
[2018-05-24] MEDS ORDERED: PROBIOTIC1 EAC1 PO (15:28)
[2018-05-24] MEDS ORDERED: PREDNISONE 10 M10 MG PO (15:28)
[2018-05-24 17:29] VITALS: BP 130/57
--- NOTE | 2018-05-24 18:22 | NUR ---
PATIENT DISCHARGED TO [facility], PATIENT DRESSED, TRIPLE LUMEN PICC TO RUE PULLED PER RN AND REPLACED WITH GAUZE AND TEGADERM, NURSE ATTEMPTED TO CALL REPORT TO RECEIVING NURSE AT [phone] MULTIPLE TIMES WITH NO ANSWER, CHART COPY WITH DISCHARGE SUMMARY SENT WITH PATIENT ALONG WITH PERSONAL BELONGINGS
--- NOTE | 2018-05-25 11:56 | HC ---
[facility] [place] [place] [address] CONSULTATION Name: CARUSOMEJIA Room #: [address] [place] [address] IN M.R.#: [id number] Admission: 05/12/18 ������������������ Attend Phys: Scott Salazar MD Discharge: 05/24/18 ������������������ Date of : 33 Report #: [id number] THIS REPORT FOR: //name// CC: Scott Salazar Physician staff [facility] DATE OF SERVICE: 05/18/2018 REASON FOR CONSULTATION: Neck mass. HISTORY OF PRESENT ILLNESS: The patient is an 82-year-old female with a long history of COPD, congestive heart failure, essential hypertension, who was brought to the hospital with increasing shortness of breath, while being evaluated, she was placed on BiPAP and was not able to give further information. She was therefore intubated by Pulmonology, has been in the ICU on the ventilator since then. She had a chest x-ray, which was consistent with pneumonia and congestive heart failure. During evaluation, it was noted she had a large left anterior neck mass. There is a past history of B cell lymphoma; however, the source of lymphoma is not forthcoming at this time has there is no family members or medical records available. Evidently, the patient had some type of radiation treatment for this at [place], but refused any previous surgery on her neck mass. The patient cannot volunteer any information at this time has the neck mass is bothersome for her. She did have an ultrasound-guided FNA of the mass yesterday. Pathology report is presently pending. ALLERGIES TO MEDICATION: None. MEDICATIONS ON ADMISSION: The medical reconciliation is reviewed. LABORATORY TESTS: Do not demonstrate any evidence of thyroid function test at this time. PAST MEDICAL HISTORY: Significant for essential hypertension, B cell lymphoma, hyperlipidemia, cataract surgery, gastroesophageal reflux disease. PHYSICAL EXAMINATION: VITAL SIGNS: She is arousable. She is presently intubated orally. Also, has an OG tube placed. HEENT: Head examination is unremarkable. Intranasal examination is dry mucosa. Oral cavity shows dry mucosa. Palpation of the neck reveals a thin neck with no lymphadenopathy. She has a rather prominent 4 to 5 cm mobile left anterior neck mass. However, the inferior border of the mass is not palpable. There is no palpable lymphadenopathy in the neck. I reviewed her CT scan of her chest, which gives the best view of this mass. [address] [address] CONSULTATION Name: [facility] [place] #: [facility] IN M.R.#: [id number] Admission: 05/12/18 ������������������ Attend Phys: Scott Salazar MD Discharge: 05/24/18 ������������������ Date of : 33 Report #: [id number] This mass appears to be all thyroid in nature, they are somewhat suspect and the right thyroid lobe appears to be normal in size. No calcification is noted. The mass does deviate the trachea approximately one with to the patient's left side. However, on looking at both the axial, coronal and sagittal there appears to be no compression of the trachea or in other words below the vocal cords appears to be no active compression of the mass. I cannot assess the laryngeal inlet with endotracheal tube in place itself directly or indirectly but there does not appear to be any compression in the cricoid area or below. ASSESSMENT: Large left neck mass, etiology unknown. We will wait the fine needle biopsy report. At this point, unless the patient is highly symptomatic and health issues dictate, I would not consider her a good surgical candidate because this mass does encroach, form a great vessels in the chest, likely will require extensive surgery, may require even a mini sternotomy to access the mass entirely. I do not find this mass is compressing her airway, should be extubated above with this mass in place. Thank you for the consultation. ��������������������������������������������� <ELECTRONICALLY SIGNED> ���������������������������������������� By: Mo Avalos MD ��������������������������������������������� 05/25/18 1156 1156 2310 Mo Avalos MD /nt
== END 2018-05-24 18:25 | DRG 870 ==
LOC: ER 08:10 → 2N 09:16 → ICU 09:16 → EROBS 09:16 → ICU 10:00 → 2N 10:13 → ICU 12:10 → 4E 05-20 12:25 → SICU 05-22 18:44
PROVIDERS: Emergency Medicine; Internal Medicine; Internal Medicine Pulmonary Disease; Pediatrics; ADMIT Hospitalist
PROC: 0BH17EZ Insertion of Endotracheal Airway into Trachea, Via Natural or Artificial Opening (ICD-10-PCS; principal; 2018-05-12)
PROC: 5A09357 Assistance with Respiratory Ventilation, Less than 24 Consecutive Hours, Continuous Positive Airway Pressure (ICD-10-PCS; principal; 2018-05-12)
PROC: 5A1955Z Respiratory Ventilation, Greater than 96 Consecutive Hours (ICD-10-PCS; principal; 2018-05-12)
PROC: 05H433Z Insertion of Infusion Device into Left Innominate Vein, Percutaneous Approach (ICD-10-PCS; principal; 2018-05-12)
PROC: 0GBG3ZX Excision of Left Thyroid Gland Lobe, Percutaneous Approach, Diagnostic (ICD-10-PCS; 2018-05-17)
DX: A41.9 Sepsis, unspecified organism (principal); J15.6 Pneumonia due to other Gram-negative bacteria; J96.22 Acute and chronic respiratory failure with hypercapnia; I50.43 Acute on chronic combined systolic (congestive) and diastolic (congestive) heart failure; J96.21 Acute and chronic respiratory failure with hypoxia; J44.1 Chronic obstructive pulmonary disease with (acute) exacerbation; E87.0 Hyperosmolality and hypernatremia; I11.0 Hypertensive heart disease with heart failure; I25.5 Ischemic cardiomyopathy; I25.10 Atherosclerotic heart disease of native coronary artery without angina pectoris; R22.1 Localized swelling, mass and lump, neck; E87.8 Other disorders of electrolyte and fluid balance, not elsewhere classified; D64.9 Anemia, unspecified; Y95 Nosocomial condition; E07.9 Disorder of thyroid, unspecified; I08.1 Rheumatic disorders of both mitral and tricuspid valves; E87.6 Hypokalemia; E83.42 Hypomagnesemia; E78.5 Hyperlipidemia, unspecified; K21.9 Gastro-esophageal reflux disease without esophagitis; M19.90 Unspecified osteoarthritis, unspecified site; E66.9 Obesity, unspecified; Z85.72 Personal history of non-Hodgkin lymphomas; Z98.42 Cataract extraction status, left eye; Z98.41 Cataract extraction status, right eye; Z68.20 Body mass index [BMI] 20.0-20.9, adult; Z79.82 Long term (current) use of aspirin; Z79.899 Other long term (current) drug therapy
CPT/HCPCS: 10078; 10783; 15002; 27000

== ENCOUNTER 2019-12-08 08:41 | Inpatient (IN) | payer OTHER ==
[~2019-12-08] VITALS: Ht 157.5 cm; Wt 70.5 kg
--- NOTE | ~2019-12-08 | EMS ---
[place] [address] EMS Patient Care Report Name: MEJIA CARUSO Room #: PRE ER M.R.#: [id number] Admission: Attend Phys: Discharge: Date of : 31 Report #: [id number] THIS REPORT FOR: //name// Report Transmitted: 12/08/2019 09:32 EMS Care Summary [place], [place]/[facility] Incident [id number] @ 12/08/2019 08:16 Incident Location [address] [place] [address] Patient MEJIA CARUSO Female, 84 Years 1935 Patient Address [address] [place], [place] [id number] Patient History Congestive Heart Failure (CHF),Chronic Obstructive Pulmonary Disease (COPD),Hypertension (HTN),Cardiac Condition - Other, Patient Medications Coreg, Bactrim, Lasix, Prednisone, Protonix, Chief Complaint Respiratory Failure Disposition Transported Lights/Ronks Dispatch Reason Breathing Problem Transported To [facility] Narrative Arrived on the scene, with T15, for a 84 y/o female. Pt is being carried down on a danial-varnish remover as we arrived. Fire said that she is breathing really fast and the early breastfeeding care specialist is saying that she has been on the neb for that past hour and O2 sats are low. ops analyst said that the Pt has hx of COPD and CHF [place] [address] EMS Patient Care Report Name: MEJIA CARUSO Room #: [facility].R.#: [id number] Admission: Attend Phys: Discharge: Date of : 33 Report #: [id number] See Pt Assessment Resp Failure See Flowchart. Pt was carried down and placed onto the cot and into the back of the ambulance. Pulse ox was placed and CPAP was then placed on the Pt. Put on the monitor and gave the Pt a breathing tx through the CPAP. Transported L/S to the closest hospital. Adam, Tried to establish and IV with no success. Pt's O2 sats came up with the tx and CPAP but still in failure. No other changes or incidents. Pt was moved from cot to bed via cot sheet. Transferred care to receiving facility. Initial Vitals @08:29P: 172,R: 40,BP: 142/79,Pain: 0/10,GCS: 11,SpO2: 60,Revised Trauma: 10, @08:37P: 149,R: 30,BP: 180/100,Pain: 0/10,GCS: 11,SpO2: 84,Revised Trauma: 10, Assessments @08:25MENTAL:Other,SKIN:Cyanotic,Diaphoresis,Pale,HEENT:Head/Face: No Abnormalities,Eyes: No Abnormalities,Neck/Airway: No Abnormalities,LUNG SOUNDS:General: No Abnormalities,Left Upper: No Abnormalities,Right Upper: No Abnormalities,Left Lower: No Abnormalities,Right Lower: No Abnormalities,ABDOMEN:General: No Abnormalities,Left Upper: No Abnormalities,Right Upper: No Abnormalities,Left Lower: No Abnormalities,Right Lower: No Abnormalities,PELVIS//GI:No Abnormalities,EXTREMITIES:Left Arm: No Abnormalities,Right Arm: No Abnormalities,Left Leg: No Abnormalities,Right Leg: No Abnormalities,PULSE:NEURO:Other, Impression Respiratory Failure Procedures @08:25ALS AssessmentResponse: UnchangedSucceeded@08:28CPAP FlowRate: 10 Response: ImprovedSucceeded@08:303-Lead ECGResponse: UnchangedSucceeded@08:34Saline Lock 0cc (20 ga) Site: Antecubital-LeftResponse: UnchangedFailed Timeline 08:15,Call Received 08:15,Dispatch Notified 08:16,Dispatched 08:17,En Route 08:24,On Scene 08:25,At Patient 08:25,ALS Assessment,Response: UnchangedSucceeded, 08:28,CPAP FlowRate: 10 Response: ImprovedSucceeded, [facility] [address] [place] [address] EMS Patient Care Report Name: CARUSOMEJIA PENA Room #: PRE ER M.R.#: [id number] Admission: Attend Phys: Discharge: Date of : 31 Report #: [id number] 08:29,BP: 142/79 M,PULSE: 172,RR: 40 R,SPO2: 60 Ox,ETCO2: ,BG: ,PAIN: 0,GCS: 11, 08:30,3-Lead ECG,Response: UnchangedSucceeded, 08:32,Depart Scene 08:34,Saline Lock 0cc 20 ga Site: Antecubital-Left,Response: UnchangedFailed, 08:37,BP: 180/100 M,PULSE: 149,RR: 30 R,SPO2: 84 Ox,ETCO2: ,BG: ,PAIN: 0,GCS: 11, 08:43,At Destination 09:04,Call Closed Disclaimer v1.1 Copyright 2020 [email or web address] This EMS Care Summary contains data elements from the applicable legal record (which may be displayed differently). It is designed to provide pertinent information for the following purposes: continuity of care, clinical quality, and state data reporting. The complete legal record is available to ED staff and administrators of the receiving hospital in [employer] Patient Tracker. All data is provided "as is."
[~2019-12-08 08:41] MED LIST: ASPIR 8181 MG PO; CARVEDILOL3.125 MG PO; COREG6.25 MG PO; IPRAT-ALBUT 0.5-3 ML INH; LASIX 20 MG TAB20 MG PO; LISINOPRIL5 MG PO; MIRALAX17 GM PO; PREDNISONE 10 M10 MG PO; PROBIOTIC1 EAC1 PO; PROTONIX40 M1 PO; SPIRONOLACTONE25 M1 PO; VENTOLIN HFA 1818 GM INH
[2019-12-08 09:16] VITALS: BP 140/74
[2019-12-08 09:16] LABS: BASOPHILS 0.2 % (0.0-2.0); EOSINOPHILS 0.1 % (0.0-3.0); HEMATOCRIT 36.7 % (37.0-47.0); HEMOGLOBIN 11.4 gm/dL (12.0-15.0); LYMPHOCYTES 5.2 % (24.0-44.0); MCH 29.6 pg (26.0-34.0); MCHC 31.1 g/dL (28.0-37.0); MCV 95.3 fL (80.0-100.0); MONOCYTES 4.5 % (1.0-8.0); PLATELET COUNT 361 thou/uL (150-400); RBC 3.86 mil/uL (4.20-5.00); RDW 15.7 % (10.5-14.5); WBC 11.1 thou/uL (4.0-11.0)
[2019-12-08 09:31] LABS: CALCIUM 8.8 mg/dL (8.5-10.1); CREATININE 0.8 mg/dL (0.6-1.0); POTASSIUM 4.4 mmol/L (3.5-5.1)
[2019-12-08 09:38] LABS: BE(vivo) 7.6 mmol/L (-2 to +3); PCO2 63.5 mmHg (35.0-45.0); PO2 98.3 mmHg (80.0-100.0); pH 7.359 (7.360-7.450)
[2019-12-08 09:42] LABS: ALBUMIN 3.1 g/dL (3.4-5.0); MAGNESIUM 2.1 mg/dL (1.8-2.4); TOTAL BILIRUBIN 0.3 mg/dL (0.2-1.0); TOTAL PROTEIN 7.8 g/dL (6.4-8.2); TROPONIN-I 0.09 ng/mL (<0.06)
[2019-12-08 10:48] LABS: APTT 27.8 Seconds (24.5-32.8); INR 1.1; PROTIME 11.4 Seconds (9.3-11.4)
--- NOTE | 2019-12-08 14:26 | NUR ---
CONSULTED TO PLACE A PICC FOR A PATIENT ADMITTING TO ICU- ORDER AND CONSENT NOTED. THE RIGHT BASILIC VEIN WAS WIDLEY PATENT. A #5F TRIPLE LUMEN POWER PICC WAS PLACED AFTER A BEDSIDE TIMEOUT WAS COMPLETED. THE LINE WAS TRIMMED TO 38CM AND ADVANCED WITHOUT DIFFICULTY. LINE WAS CONFIRMED IN GOOD POSITION VIA CHEST XRAY AND RELEASED FOR USE
--- NOTE | 2019-12-08 17:53 | NUR ---
CONTACT TIM CARUSO [phone]
[2019-12-08] MEDS ORDERED: CARVEDILOL6.25 M1 PO (19:38)
[2019-12-08] MEDS ORDERED: PROTONIX40 M2 PO (19:38)
[2019-12-08] MEDS ORDERED: FUROSEMIDE 20 M20 M1 PO (19:38)
[2019-12-08] MEDS ORDERED: CARVEDILOL3.125 MG PO (19:38)
--- NOTE | 2019-12-08 21:30 | NUR ---
Pharmacy called about nancy at this time. Order printed and faxed to pharmacy
--- NOTE | 2019-12-08 21:45 | NUR ---
Pharmacy called again about nancy. Report they thought they tubed med but tube system was "down." Reports will walk med to ER.
--- NOTE | 2019-12-08 22:06 | NUR ---
RT called at this time due to low O2 sat.
--- NOTE | 2019-12-08 22:08 | NUR ---
THIS RN SPEAKS TO TIM, DAUGHTER AND ERNESTO. SITUATION IS EXPLAINED TO DAUGHTER, INCLUDING THE FACT THAT PATIENT HAS HAD WITNESSED SEIZURES HERE AND THAT HER OXYGEN LEVEL IS LOW. IT IS EXPLAINED TO DAUGHTER THE DIFFERENCES BETWEEN INTUBATION AND COMFORT CARE. DAUGHTER REPORTS SHE WILL MAKE A FEW PHONE CALLS AND CALL THIS RN BACK.
--- NOTE | 2019-12-08 22:49 | NUR ---
Albert, daughter, reports that they would like patient intubated if she cannot maintain her airway. Daughter verbalizes understanding that patient may not be able to be extubated. Reports that after speaking with her siblings that is what she wants. Albert reports however that they do not want the healthcare team to initiate chest compressions if her heart were to stop.
--- NOTE | 2019-12-08 23:12 | NUR ---
GIOVANNI Pruitt, notified of patient status. Reports to insert temp sensing youngblood but not to do fluid resuscitation with warmed saline. Reports bear hugger is appropriate. Reports to call neurology if additional seizure like activity occurs. And to perform an ABG as long as it has been at least 30 minutes since BIPAP settings were changed. GIOVANNI Pruitt, is notified of family care goals. program director scoutingBailey, notified of conversation.
[2019-12-08 23:46] LABS: BE(vivo) 2.9 mmol/L (-2 to +3); HCO3 36.2 mmol/L (22.0-26.0); PCO2 123.7 mmHg (35.0-45.0); pH 7.084 (7.360-7.450); sO2 89.2 % (92.0-98.0)
[2019-12-09] VITALS (59 sets, daily range): BP systolic 99–193; BP diastolic 45–92
[2019-12-09 01:45] LABS: BE(vivo) 7.5 mmol/L (-2 to +3); HCO3 33.1 mmol/L (22.0-26.0); PCO2 50.9 mmHg (35.0-45.0); PO2 278.2 mmHg (80.0-100.0); pH 7.431 (7.360-7.450); sO2 99.7 % (92.0-98.0)
--- NOTE | 2019-12-09 02:30 | NUR ---
Vent turned to FiO2 of 50 % per Meera, RT.
--- NOTE | 2019-12-09 03:59 | NUR ---
Patient's daughter, Albert, updated at this time.
[2019-12-09 04:34] LABS: ABSOLUTE NEUTROPHILS 17.8 thou/uL (1.4-8.2); BASOPHILS 0.3 % (0.0-2.0); EOSINOPHILS 0.3 % (0.0-3.0); HEMATOCRIT 30.2 % (37.0-47.0); LYMPHOCYTES 3.4 % (24.0-44.0); MCH 29.6 pg (26.0-34.0); MCHC 30.3 g/dL (28.0-37.0); MCV 97.8 fL (80.0-100.0); MONOCYTES 2.8 % (1.0-8.0); POLYS 93.2 % (36.0-66.0); RBC 3.09 mil/uL (4.20-5.00); RDW 16.4 % (10.5-14.5)
[2019-12-09 04:35] LABS: HEMOGLOBIN 9.1 gm/dL (12.0-15.0); PLATELET COUNT 278 thou/uL (150-400)
[2019-12-09 05:06] LABS: ALBUMIN 2.2 g/dL (3.4-5.0); CALCIUM 7.4 mg/dL (8.5-10.1); CREATININE 0.6 mg/dL (0.6-1.0); MAGNESIUM 1.8 mg/dL (1.8-2.4); PHOSPHORUS 2.4 mg/dL (2.5-4.9); TOTAL BILIRUBIN 0.5 mg/dL (0.2-1.0)
[2019-12-09 05:19] LABS: POTASSIUM 4.3 mmol/L (3.5-5.1)
--- NOTE | 2019-12-09 06:43 | NUR ---
Attempted to call report. Unable to call due to shift change per AMINAH Wilson. Katie reports she will have the receiving nurse call report.
--- NOTE | 2019-12-09 07:14 | NUR ---
Attempted to call report to ICU nurse. Nurse reports he is in the middle of shift change and will call back in 10 minutes.
--- NOTE | 2019-12-09 13:47 | NUR ---
>>>0820 REPORT RECEIVED FROM ER NURSE. PT ARRIVED ON FLOOR VIA TRANSPORTTATION BY ER NURSE AND RT. CONTINUES ON VENT SETTINGS WITH SEDATION MEDICATION. SEIZURE PRECAUTIONS ENHANCED. ASSESSMENTS DONE DOCUMENTED. GIEVN SEDATION VACATUION. NOT FOLLOWING COMMANDS, RESPONDS TO PAIN STIMULI . NO CPAP TRIAL AT THIS TIME. FAMILY UPDATED ON PT CONDITION AND TRANSFER TO ICU. ALL CONSULTS NOTIFIED. >>> 1100 DR MADHAVI CABRERA ON PT. UPDATES GIVEN. GAVE ORDER FOR A SECOND COVID-19 TEST. >>>1330 DR JACQUES AND DR KYLIE ARENAS ON PATIENT. UPDATED ON PT CONDITION. SEE NEW ORDERS.
[2019-12-10] VITALS (100 sets, daily range): BP systolic 102–176; BP diastolic 48–83
[2019-12-10 03:05] LABS: GLYCOHEMOGLOBIN (HGB A1C) 6.2 % (4.8-5.6)
--- NOTE | 2019-12-10 03:53 | NUR ---
PT SEDATED & INTUBATED. VSS, OPENING EYES TO PAINFUL STIMULI, AFIBRILE,35ML URINE OUTPUT NOTED IN CARROLL @1999. RECEIVED LASIX 40MG BEFORE SHIFT CHANGE.CARROLL IRRIGATED WITH 20ML NS, 14ML PULLED OUT.ROULA SAHU GUN STRIPER NOTIFIED @2320, NEW ORDERS-BLADDER SCAN/IRRIGATE CARROLL. BLADDER SCAN SHOWS 469ML.[id number] DEFLATED & INFLATED, LARGE AMOUNT INCOTINENCE EPISODE PLUS 600ML OUTPUT IN CARROLL BAG.
[2019-12-10 06:56] LABS: ABSOLUTE NEUTROPHILS 12.2 thou/uL (1.4-8.2); BASOPHILS 0.2 % (0.0-2.0); HEMATOCRIT 28.8 % (37.0-47.0); HEMOGLOBIN 9.1 gm/dL (12.0-15.0); LYMPHOCYTES 1.9 % (24.0-44.0); MCHC 31.7 g/dL (28.0-37.0); MCV 94.8 fL (80.0-100.0); PLATELET COUNT 247 thou/uL (150-400); POLYS 95.9 % (36.0-66.0); RBC 3.03 mil/uL (4.20-5.00); RDW 15.9 % (10.5-14.5); WBC 12.8 thou/uL (4.0-11.0)
--- NOTE | 2019-12-10 07:33 | EKG ---
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 : 1935 Requested By: Leander Cobb Order Number: [id number] MD: Jigar Gordon Measurements Intervals Chemult Rate: 140 P: 198 MN: 106 QRS: -36 QRSD: 84 T: -47 QT: 269 QTc: 411 Interpretive Statements Atrial flutter with a rapid ventricular response LVH with secondary repolarization abnormality Inferior infarct, old Compared to ECG 05/13/2018 09:20:31 Atrial flutter has replaced sinus rhythm ST and T wave abnormality less pronounced Electronically Signed On 12-10-2019 7:33:01 CDT by Jigar Gordon [email or web address] <ELECTRONICALLY SIGNED> By: Jigar Gordon MD, FACC 12/10/19 0733 0 0 Jigar Gordon MD, FAC /EPI
[2019-12-10 08:46] LABS: CALCIUM 7.8 mg/dL (8.5-10.1); CREATININE 0.5 mg/dL (0.6-1.0); MAGNESIUM 1.7 mg/dL (1.8-2.4)
[2019-12-10 08:55] LABS: POTASSIUM 2.3 mmol/L (3.5-5.1)
--- NOTE | 2019-12-10 13:27 | 2DMMODE ---
[facility] [place] [address] 2 D/M-MODE ECHOCARDIOGRAM Name: MEJIA CARUSO Room #: 244-P ADM IN M.R.#: [id number] Admission: 12/08/19 Attend Phys: Aury Lemons MD Discharge: Date of : 33 Report #: [id number] THIS REPORT FOR: cc: FAM - No family physician/PCP FAM - No family physician/PCP eDny Doyle MD ~ APPROVED REPORT Study performed: 12/10/2019 10:45:47 EXAM: Comprehensive 2D, Doppler, and color-flow Echocardiogram Patient Location: ICU Status: routine BSA: 1.43 HR: 81 bpm BP: 113/65 mmHg Rhythm: Atrial Fibrillation Other Information Study Quality: Good Indications Congestive Heart Failure COPD Pulmonary Hypertension Sepsis Cardiomyopathy Hypertension/HDD 2D Dimensions RVDd: 42.80 mm IVSd: 14.28 (7-11mm) LVOT Diam: 22.48 (18-24mm) LVDd: 42.86 mm PWd: 11.61 (7-11mm) Ascending Ao: 33.47 (22-36mm) LVDs: 33.37 (25-40mm) Aortic Root: 30.78 mm IVC: 14.00 mm Volumes Left Atrial Volume (Systole) Single Plane 4CH: 51.51 mL Single Plane 2CH: 39.61 mL LA ESV Index: 37.00 mL/m2 Aortic Valve [facility] [address] [place] [address] 2 D/M-MODE ECHOCARDIOGRAM Name: SHADYMEJIA Room #: 244-P ADM IN M.R.#: [id number] Admission: 12/08/19 Attend Phys: Aury Lemons, Discharge: Date of : 31 Report #: [id number] AoV Peak Cosmo.: 1.69 m/s AO Peak Gr.: 11.45 mmHg LVOT Max P.24 mmHg LVOT Max V: 0.75 m/s DEBI Vmax: 1.76 cm2 Pulmonary Valve PV Peak Cosmo.: 0.84 m/s PV Peak Gr.: 2.79 mmHg Tricuspid Valve TR Peak Cosmo.: 3.08 m/s TR Peak Gr.: 37.91 mmHg PA Pressure: 43.00 mmHg Left Ventricle The left ventricle is normal size. There is normal LV segmental wall motion. Mild concentric left ventricular hypertrophy. The left ventricular systolic function is normal. The left ventricular ejection fraction is within the normal range. LVEF is 50%. This study is not technically sufficient to allow evaluation of the LV diastolic function. Right Ventricle Right ventricle is dilated. The right ventricular systolic function is normal. Atria Left atrium is dilated. Right atrium is dilated. Aortic Valve The aortic valve is normal in structure. The Aortic valve is sclerotic. Mild aortic regurgitation. There is no aortic valvular stenosis. Mitral Valve The mitral valve is normal in structure. Mild mitral regurgitation. No evidence of mitral valve stenosis. Tricuspid Valve The tricuspid valve is normal in structure. There is trace to mild tricuspid regurgitation. Estimated PAP43 mmHg. There is moderate pulmonary hypertension. Pulmonic Valve The pulmonary valve is normal in structure. Trace to mild pulmonic regurgitation. [facility] [address] [place] [address] 2 D/M-MODE ECHOCARDIOGRAM Name: ROSI CARUSOCYNDY Room #: 244-P ADM IN M.R.#: [id number] Admission: 12/08/19 Attend Phys: Aury Lemons, Discharge: Date of : 33 Report #: [id number] Great Vessels The aortic root is normal in size. IVC is normal in size and collapses >50% with inspiration. Pericardium There is no pericardial effusion. <Conclusion> The left ventricle is normal size. LVEF is 50%. Right ventricle is dilated. The right ventricular systolic function is normal. Left atrium is dilated. Right atrium is dilated. The aortic valve is normal in structure. The Aortic valve is sclerotic. Mild aortic regurgitation. The mitral valve is normal in structure. Mild mitral regurgitation. The tricuspid valve is normal in structure. There is trace to mild tricuspid regurgitation. Estimated PAP43 mmHg. There is moderate pulmonary hypertension. The pulmonary valve is normal in structure. Trace to mild pulmonic regurgitation. There is no pericardial effusion. <ELECTRONICALLY SIGNED> By: Deny Doyle MD 12/10/191326 26 26 Deny Doyle MD /INF
--- NOTE | 2019-12-10 15:02 | NUR ---
chart review. [place] [facility] [place]. cm visited with daughter malu via phone call. intro to cm and dcp. daughter reported she lives with her daughter in house, 6 steps from front door, 2 steps if enter from back door, then 14 steps inside she has to do. has cane and walker. would only use cane when needed but last 2 weeks she needed walker and more assistance at home. malu manage her medication at home or private duty at home 3-8 hr as needed daily. before 2 weeks ago mom was able to do general care, and doing exercise daily or every other day per daughter malu. will cont following as needed for dc needs.
[2019-12-10 18:15] LABS: CALCIUM 8.3 mg/dL (8.5-10.1); CREATININE 0.4 mg/dL (0.6-1.0)
[2019-12-10 18:27] LABS: POTASSIUM 2.6 mmol/L (3.5-5.1)
[2019-12-11] VITALS (68 sets, daily range): BP systolic 101–141; BP diastolic 40–72
--- NOTE | 2019-12-11 02:08 | NUR ---
OG tube intact, 55cm @lip, Tube feeding started at 1930 @ 20ml/hr, now at 30ml, no gastrict residual noted. Tolarating TF well. D50W given for BG 68.
[2019-12-11 02:42] LABS: HEMATOCRIT 31.1 % (37.0-47.0); HEMOGLOBIN 9.5 gm/dL (12.0-15.0); MCH 29.4 pg (26.0-34.0); MCHC 30.6 g/dL (28.0-37.0); MCV 96.2 fL (80.0-100.0); RBC 3.23 mil/uL (4.20-5.00); RDW 15.9 % (10.5-14.5); WBC 12.8 thou/uL (4.0-11.0)
[2019-12-11 02:47] LABS: CALCIUM 7.9 mg/dL (8.5-10.1); CREATININE 0.5 mg/dL (0.6-1.0); POTASSIUM 3.2 mmol/L (3.5-5.1)
--- NOTE | 2019-12-11 10:53 | NUR ---
ASSUMED CARE @ 0700 12/11/19, PT ASSESSMENTS AND VSS COMPLETE PER ICU PROTOCOL DR SINGER TO THE BEDSIDE @ 1040, RN COMMUNICATES LOW UO, RENAL CONSULT PLACED AND CALLED.
[2019-12-11 16:24] LABS: URINE CREATININE-RANDOM* 50.5 mg/dL
[2019-12-12] VITALS (43 sets, daily range): BP systolic 96–153; BP diastolic 48–70
--- NOTE | 2019-12-12 01:52 | NUR ---
ASSUMED PT CARE AT 0. VSS. PT INSTUBATED AND SEDATED WITH VERSED AT 5MG. SEDATION VACATION FOR 20 MINUTES; PT DOES NOT FOLLOW COMMANDS, PT FACIAL GRIMACES TO STERNAL RUB, RANDOMLY MOVES EXTREMITIES, HAS +COUGH/GAG. SPOKE TO PT'S DTR AT 2137; UPDATED HER ON PT STATUS, VITAL SIGNS AND RESULTS OF EEG. STATING THAT THE HOSPITALIST WILL FURTHER EXPLAIN THE DETAILS OF THE RESULTS OF EEG TO HER IN THE AM. PT IS STABLE. U/O AVERAGE GREATER THAN 60ML/HR. WILL CONTINUE TO CLOSELY MONITOR.
[2019-12-12 06:06] LABS: MCH 30.5 pg (26.0-34.0); MCHC 32.1 g/dL (28.0-37.0); MCV 95.1 fL (80.0-100.0); RBC 2.94 mil/uL (4.20-5.00); RDW 16.1 % (10.5-14.5); WBC 9.2 thou/uL (4.0-11.0)
[2019-12-12 06:29] LABS: CREATININE 0.5 mg/dL (0.6-1.0)
[2019-12-12 06:41] LABS: POTASSIUM 2.9 mmol/L (3.5-5.1)
--- NOTE | 2019-12-12 10:53 | NUR ---
ASSUMED CARE @ 0700 12/12/19, PT ASSESSMENTS AND VSS COMPLETE PER ICU PROTOCOL. DR SINGER AT BEDSIDE THIS AM , NO NEW ORDERS RECIEVED AT THIS TIME. [facility] CALLED THIS AM FOR AN UPDATE, CODE VERIFIED AND UPDATE GIVEN.
[2019-12-13] VITALS (17 sets, daily range): BP systolic 116–160; BP diastolic 56–83
--- NOTE | 2019-12-13 00:07 | NUR ---
ASSESSMENTS COMPLETED.PT SEDATED, VSS, AFEBRILE. ON CONTINUOUS TF @ GOAL RATE. NO GASTRIC RESIDUAL NOTED, TOLARATING THE SAME WELL.DAUGHTER- TIM CARUSO CALLED, UPDATES ON PT'S CONDITION AND POC GIVEN. STATES, WILL SEE HER IN AM.
--- NOTE | 2019-12-13 06:06 | NUR ---
SEDATION VACATION GIVEN SINCE 339. NO CHANGE NOTED ON PATIENT'S VS,PATIENT APPEARS TO BE IN DEEP SLEEP, DOES NOT ATTEMPT TO MOVE EXTREMETIES AND HAS NOT OPENED EYES. STERNAL RUB DONE,SLIGHT TOUGUE MOVEMENT NOTED BUT EYES REMAIN CLOSED. VERSED GTT OFF AT THIS TIME.
[2019-12-13 06:13] LABS: HEMATOCRIT 29.3 % (37.0-47.0); MCH 29.9 pg (26.0-34.0); MCHC 30.7 g/dL (28.0-37.0); MCV 97.3 fL (80.0-100.0); RBC 3.01 mil/uL (4.20-5.00); RDW 16.7 % (10.5-14.5); WBC 6.7 thou/uL (4.0-11.0)
[2019-12-13 06:25] LABS: CALCIUM 7.8 mg/dL (8.5-10.1); CREATININE 0.4 mg/dL (0.6-1.0)
[2019-12-13 06:26] LABS: POTASSIUM 4.5 mmol/L (3.5-5.1)
--- NOTE | 2019-12-13 10:46 | NUR ---
ASSUMED CARE @ 0700 12/13/19, PT ASSESSMENTS AND VSS COMPLETE PER ICU PROTCOL. PT ENCOUNTERED ON A SEDATION VACATION, PER REPORT VERSED GTT OFF SINCE 339, PT NOT WAKING UP OR FOLLOWING ANY COMMANDS. CPAP PERFORMED PER AIDAN RT, PT RR IN THE 30'S, PT DESATTING IN THE HIGH 80', VENT SETTINGS CHANGED BACK TO A/C
[2019-12-14] VITALS (23 sets, daily range): BP systolic 124–154; BP diastolic 57–79
[2019-12-14 05:18] LABS: CALCIUM 8.2 mg/dL (8.5-10.1); CREATININE 0.5 mg/dL (0.6-1.0); POTASSIUM 4.2 mmol/L (3.5-5.1)
[2019-12-14 05:27] LABS: HEMATOCRIT 31.3 % (37.0-47.0); HEMOGLOBIN 9.8 gm/dL (12.0-15.0); MCH 29.7 pg (26.0-34.0); MCHC 31.2 g/dL (28.0-37.0); MCV 95.2 fL (80.0-100.0); RBC 3.29 mil/uL (4.20-5.00); RDW 16.3 % (10.5-14.5); WBC 10.4 thou/uL (4.0-11.0)
[2019-12-14 10:35] LABS: BE(vivo) 5.7 mmol/L (-2 to +3); HCO3 30.5 mmol/L (22.0-26.0); PCO2 45.4 mmHg (35.0-45.0); pH 7.445 (7.360-7.450); sO2 97.2 % (92.0-98.0)
--- NOTE | 2019-12-14 13:53 | NUR ---
chart review. unable to visit with [facility] [place], she remains on vent with tf nutritional support. cm visited with daughter malu, via phone call, she stated she was going to visit today. just would like to know how her brain waves are going. excited she is little more alert today and thank you for checking with me per malu. will cont following as needed for dc needs.
--- NOTE | 2019-12-14 16:37 | NUR ---
PT AWAKE. PT OFF SEDATION x2 DAYS. PT FOLLOWING COMMANDS. PT FAILED CPAP TRIAL x2 - RR HIGH. BOTH CPAP LASTED FOR ABOUT 10-15 MINUTES. PT TOLERATING TUBE FEED. NO COMPAIN OF PAIN. URINE OUTPUT ADEQUATE.
--- NOTE | 2019-12-14 23:19 | NUR ---
PATIENT AWAKE WITH EYES OPENING SPONTANEOUSLY, ALERT AND ORIENTED. DENIES PAIN, ANSWERING Y/N QUESTIONS BY NODDING WITH ATTEMPTS TO MOUTH WORDS EVEN THOUGH INTUBATED. VSS, AFEBRILE.RESTING WELL AFTER REPOSITONING
[2019-12-15] VITALS (23 sets, daily range): BP systolic 122–163; BP diastolic 57–80
[2019-12-15 05:40] LABS: HEMOGLOBIN 9.8 gm/dL (12.0-15.0); MCHC 31.6 g/dL (28.0-37.0); PLATELET COUNT 251 thou/uL (150-400); RBC 3.26 mil/uL (4.20-5.00); RDW 15.6 % (10.5-14.5); WBC 9.3 thou/uL (4.0-11.0)
[2019-12-15 05:57] LABS: ALBUMIN 1.7 g/dL (3.4-5.0); CALCIUM 8.1 mg/dL (8.5-10.1); CREATININE 0.5 mg/dL (0.6-1.0); PHOSPHORUS 2.1 mg/dL (2.5-4.9); POTASSIUM 4.1 mmol/L (3.5-5.1); TOTAL BILIRUBIN 0.2 mg/dL (0.2-1.0); TOTAL PROTEIN 5.2 g/dL (6.4-8.2)
[2019-12-15 07:26] LABS: ABSOLUTE NEUTROPHILS 7.9 thou/uL (1.4-8.2); METAMYELOCYTES 1 %; PLATELET ESTIMATE NORMAL
--- NOTE | 2019-12-15 09:07 | NUR ---
ASSESSMENTS AND INTERVENTIONS DOCCUMENTED. PATIENT HAVING A 2 LARGE LIQUID STOOLS THIS AM. RN PLACING FMS.
[2019-12-16] VITALS (17 sets, daily range): BP systolic 106–150; BP diastolic 47–74
--- NOTE | 2019-12-16 07:00 | NUR ---
Patient not progressing towards plan of care as evidenced by unable to pass weaning trials. Plan of care is to continue to monitor patient vital signs, assessments q2-4 hours, and output q1 hour.
--- NOTE | 2019-12-16 18:45 | NUR ---
ASSESSMENTS AND INTERVETIONS DOCCUMENTED. NO MAJOR CONCERNS THIS SHIFT. DAUGHTER CALLING, RN UPDATED AND EDUCATED HER ABOUT POC. PATIENT STILL UNABLE TO WEAN AT THIS TIME.
[2019-12-17] VITALS (23 sets, daily range): BP systolic 100–143; BP diastolic 50–75
--- NOTE | 2019-12-17 07:25 | NUR ---
ASSESSMENTS CHARTED, MEDS CHARTED GIVEN. PATIENT AWAKE AND ALERT DURING SHIFT. NODS HEAD APPROPRIATELY. ON VENT, CARROLL, FECAL MANAGEMENT SYSTEM, Q6 ACCUCHECKS, COVERAGE NEEDED EACH TIME. RESTRAINTS IN PLACE, RESTRAINTS DOCUMENTED NEEDED. DENIES PAIN. PLAN OF CARE TO CONTINUE TRYING TO WEAN PATIENT OFF VENT.
[2019-12-17 09:50] LABS: HEMATOCRIT 32.2 % (37.0-47.0); HEMOGLOBIN 10.3 gm/dL (12.0-15.0); MCH 30.3 pg (26.0-34.0); MCV 94.6 fL (80.0-100.0); PLATELET COUNT 299 thou/uL (150-400); RDW 15.9 % (10.5-14.5); WBC 10.8 thou/uL (4.0-11.0)
[2019-12-17 10:01] LABS: ALBUMIN 2.5 g/dL (3.4-5.0); CREATININE 0.6 mg/dL (0.6-1.0); MAGNESIUM 2.1 mg/dL (1.8-2.4); POTASSIUM 3.8 mmol/L (3.5-5.1); TOTAL BILIRUBIN 0.3 mg/dL (0.2-1.0)
[2019-12-17 10:15] LABS: ABSOLUTE NEUTROPHILS 9.5 thou/uL (1.4-8.2); NUCLEATED RBCS 2 /100WBC; PLATELET ESTIMATE NORMAL
[2019-12-17 10:41] LABS: BE(vivo) 14.8 mmol/L (-2 to +3); HCO3 41.7 mmol/L (22.0-26.0); PCO2 64.7 mmHg (35.0-45.0); PO2 84.4 mmHg (80.0-100.0); pH 7.427 (7.360-7.450); sO2 96.2 % (92.0-98.0)
--- NOTE | 2019-12-17 13:19 | NUR ---
ON THE VENT, AWAKENS EASILY AND FOLLOWS COMMANDS AND NODS TO Y/N QNS. VITALS STABLE AND DENIES PAIN. TOLERATING TUBEFEEDING PER OGT MINIMAL RESIDUALS. CPAP TRIAL THIS MORNING AND TOLERATED WELL AND ABG CALLED TO DR. LOPEZ. GLEN AND FMS IN PLACE AND ASSESSMENT DOCUMENTED. DAUGHTER IN TO VISIT AND UPDATED AND QNS ANSWERED.
--- NOTE | 2019-12-17 14:00 | NUR ---
chart review. try to wean down and off sedation. possible will start wean try when mental status improves. remains on vent, tf for nutritional support. daughter malu already spoke with bedside nurses for update. will cont following as needed for dc needs.
[2019-12-18] VITALS (12 sets, daily range): BP systolic 98–140; BP diastolic 46–68
[2019-12-18 02:54] LABS: BASOPHILS 0.2 % (0.0-2.0); EOSINOPHILS 0.1 % (0.0-3.0); HEMATOCRIT 29.3 % (37.0-47.0); HEMOGLOBIN 9.4 gm/dL (12.0-15.0); LYMPHOCYTES 4.8 % (24.0-44.0); MCH 30.5 pg (26.0-34.0); MCV 95.3 fL (80.0-100.0); MONOCYTES 4.2 % (1.0-8.0); PLATELET COUNT 267 thou/uL (150-400); POLYS 90.7 % (36.0-66.0); RBC 3.07 mil/uL (4.20-5.00); RDW 16.2 % (10.5-14.5); WBC 9.9 thou/uL (4.0-11.0)
[2019-12-18 03:54] LABS: ALBUMIN 2.2 g/dL (3.4-5.0); CALCIUM 8.4 mg/dL (8.5-10.1); CREATININE 0.6 mg/dL (0.6-1.0); POTASSIUM 4.2 mmol/L (3.5-5.1); TOTAL BILIRUBIN 0.2 mg/dL (0.2-1.0); TOTAL PROTEIN 5.2 g/dL (6.4-8.2)
[2019-12-18 05:12] LABS: BE(vivo) 11.7 mmol/L (-2 to +3); HCO3 36.2 mmol/L (22.0-26.0); PCO2 47.4 mmHg (35.0-45.0); PO2 100.2 mmHg (80.0-100.0); pH 7.501 (7.360-7.450); sO2 97.9 % (92.0-98.0)
--- NOTE | 2019-12-18 06:51 | NUR ---
No major changes through the night. Plan to be extubated and hopefully discharged today. VS stable, adequate urine output. TF running at goal. Fluids DC'd. Restraints in place.
--- NOTE | 2019-12-18 08:55 | NUR ---
0848- DR. LOPEZ IN ROOM. PT PUT ON CPAP TRIAL. WOULD LIKE ABG DRAWN IN 30 MIN.
[2019-12-18 10:13] LABS: BE(vivo) 15.7 mmol/L (-2 to +3); HCO3 42.2 mmol/L (22.0-26.0); PCO2 62.6 mmHg (35.0-45.0); pH 7.447 (7.360-7.450); sO2 96.1 % (92.0-98.0)
--- NOTE | 2019-12-18 10:45 | NUR ---
TALKED WITH DR. LOPEZ. HE IS AWAITING TO HEAR BACK FROM FAMILY BEFORE EXTUBATION DUE TO CT RESULTS FROM 12/07 AND PT BEING A DNI. PT TOLERATING TRIAL 100% RESP RATE 24. KEEP ON CPAP IF SHE TOLERATES.
--- NOTE | 2019-12-18 11:00 | NUR ---
TALKED WITH TIM DAUGHTER ON THE PHONE. UPDATED ABOUT TRIAL THIS MORNING AND WANTING TO PULL THE TUBE OUT. TOLD HER DR. LOPEZ WOULD LIKE TO TALK WITH HER. DR. LOPEZ CALLED AND NOTIFIED OF BEING ABLE TO TALK WITH DAUGHTER. HE IS TO CALL.
--- NOTE | 2019-12-18 11:10 | NUR ---
TALKED WITH DR. LOPEZ. WE WILL EXTUBATE PT TO 4L. BIPAP NEEDED. NO REINTUBATION
--- NOTE | 2019-12-18 11:25 | NUR ---
PT EXTUBATED TO 4L PER NC. SATURATIONS @ 100% TOLERATING WELL.
--- NOTE | 2019-12-18 17:22 | NUR ---
PT PROGESSING TOWARDS GOALS. PT TRIALED TODAY. EXTUBATED TO 4L PER NC. PT CURRENTLY ON 2L PER NC. AWAITING SPEECH EVAL. VSS. COMMUNICATING AND FOLLOWING COMMANDS.
--- NOTE | 2019-12-18 21:08 | NUR ---
This RN to bedside at 1900 this evening. This RN spoke to Sonal Adam NP regarding patients PO Keppra due. Pt has still not been seen by speech and so I got orders for a one time switch to IV medication so patient did not miss a dose. Will continue to monitor.
--- NOTE | 2019-12-18 21:39 | NUR ---
This RN spoke to patients daughter, Albert, regarding patient status. Daughter concerned patient was still lethargic and wasn't able to eat or drink anything. RN assured daughter patient was still alert and oriented and that speech would be around tomorrow to evaluate her, and that she was getting nutrition when intubated.
[2019-12-19] VITALS (14 sets, daily range): BP systolic 113–143; BP diastolic 59–78
--- NOTE | 2019-12-19 06:34 | NUR ---
No major changes throughout the night. VS stable, adequate urine output, and no complaints of pain. Patient remained on 4L NC and has no SOB. Satting at 99-100% SaO2. Plan for speech evaluation today. Will continue to monitor.
--- NOTE | 2019-12-19 12:03 | EEG ---
[facility] [place] [address] ELECTROENCEPHALOGRAM Name: SHADYMEJIA Room #: [facility] ADM IN M.R.#: [id number] Admission: 12/08/19 Attend Phys: Aury Lemons MD Discharge: Date of : 31 Report #: [id number] THIS REPORT FOR: //name// CC: [facility] physician/PCP Aury Lemons DATE OF SERVICE: 12/10/2019 This patient is being evaluated for altered mental status. EEG was done by placing the electrode by standard 10/20 system of electrode placement. Both referential and sequential montages were used for recording. Background activity in this patient's EEG is about 5-6 Hz and 10 microvolt. This is a poorly formed background activity. Photic stimulation is unremarkable. IMPRESSION: This is a severely abnormal EEG. That will be consistent with a diagnosis of encephalopathy. However, the finding is nonspecific and can occur in multiple other etiologies and therefore, clinical correlation is recommended. <ELECTRONICALLY SIGNED> By: Javier Almaraz MD 12/19/19 1203 [id number] 1845 Javier Almaraz MD /nt
--- NOTE | 2019-12-19 12:19 | NUR ---
PATIENT TRANSFERRED TO CCU AT 1210 ROOM 210. 2LNC
--- NOTE | 2019-12-19 12:20 | NUR ---
TRANSFERRED CARES TO RONDA BURR AT 1210 TO CCU ROOM 210. 2LNC. PATIENT SENT WITH ALL BELONGINGS.
--- NOTE | 2019-12-19 13:24 | NUR ---
ATTEMPTED TO CONTACT FAMILY OF MEJIA CARUSO, PRIOR TO TRANSFER. CONTACTED TIM CARUSO (DAUGHTER)
--- NOTE | 2019-12-19 19:04 | NUR ---
PT TRANSFERED FROM ICU IN STABLE CONDITION. SCHEDULED AND PRN RT TREATMENT GIVEN. NEED ENCOURAGEMENT TO EAT. NO CONCERNS AT THIS TIME.
[2019-12-20 00:45] VITALS: BP 156/74
--- NOTE | 2019-12-20 03:53 | NUR ---
ASSUMED CARE 1900. PT ALERT X 1. FOLLOWS COMMANDS . MOVES BOTH UPPER AND LOWER EXTREMITIES. DENIES NAUSEA VOMITING. RECTAL TUBE IN PLACE WITH DARK LIQUID STOOL. SR ON THE MONITOR. DENIES PAIN. WILL CONTINUE TO MONITOR AND FOLLOW POC.
[2019-12-20 04:45] VITALS: BP 139/72
[2019-12-20 08:13] VITALS: BP 148/66
[2019-12-20 11:08] VITALS: BP 139/62
--- NOTE | 2019-12-20 11:49 | NUR ---
Patient transferred to 2N from ICU. Patient has therapy evals initiated. She resides at home with dtr Albert. 5N consult. Patient extremenly weak. Discussed with dtr 5n and criteria for acute rehab. Discussed left list for skilled post acute care. Patient has been at [facility] in past. Dtr reports she is not planning for her to return to [facility]. If not 5N would consider taking her home and increase of private dty at home.
[2019-12-20 15:30] VITALS: BP 149/95
[2019-12-20 20:15] VITALS: BP 113/51
[2019-12-21 04:45] VITALS: BP 122/54
--- NOTE | 2019-12-21 11:28 | HC ---
[facility] [place] [address] CONSULTATION Name: ROSI CARUSOCYNDY Room #: 210- ADM IN M.R.#: [id number] Admission: 12/08/19 Attend Phys: Aury Lemons MD Discharge: Date of : 31 Report #: [id number] THIS REPORT FOR: cc: KVNG - Sumi family physician/PCP KVNG - Sumi family physician/PCP Jayson Katz MD ~ CC: [facility] physician/PCP Aury Lemons DATE OF SERVICE: 12/09/2019 INFECTIOUS DISEASE CONSULTATION ATTENDING PHYSICIAN: Dr. Lemons. REASON FOR EVALUATION: Severe pneumonitis, complicated by respiratory failure. HISTORY OF PRESENT ILLNESS: Chart reviewed, patient examined. 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 She was initiated on BiPAP therapy and ultimately is now intubated. She is not responsive at this point. Chest x-ray showed diffuse bilateral interstitial opacities, question of edema versus pneumonitis. ABGs showed a pH 7.359, pCO2 of 63.5, pO2 of 98.3 on 100% FiO2 with BiPAP. ProBNP was elevated at 6733. A subsequent CT of the chest showed no evidence of PE, has had multifocal areas of patchy infiltrates, stable large solid mass with the left inferior neck suggestive of goiter. Influenza antigen was tested and was negative. COVID testing was negative, second test pending. Lactic acid was elevated at 2.7, repeat was 2.5. Blood cultures have been collected. She is empirically started on combination therapy with azithromycin, ceftriaxone and metronidazole and one-time dose of vancomycin. ALLERGIES: None known. MEDICINES: Include sliding scale insulin, azithromycin, ceftriaxone, norepinephrine, metronidazole, famotidine, lorazepam, p.r.n. analgesics. PAST MEDICAL HISTORY: Includes hypertension, reflux, history of lymphoma as noted above, hyperlipidemia, cataract surgery. SOCIAL HISTORY: Nonsmoker, no ethanol, no illicit drug use. FAMILY HISTORY: Noncontributory. [facility] [address] [place] [address] CONSULTATION Name: [facility] Room #: [address] [place] [address] IN M.R.#: [id number] Admission: 12/08/19 Attend Phys: Aury Lemons MD Discharge: Date of : 31 Report #: [id number] REVIEW OF SYSTEMS: Not obtainable. PHYSICAL EXAMINATION: GENERAL: She appears chronically ill, undernourished. She is sedated, maintained on ventilatory support via ET tube. She has an OG tube as well. VITAL SIGNS: Temperature 102.4 rectal, pulse 95, respirations 22, blood pressure 150/67. SKIN: Warm, dry, no rashes. NECK: Supple. LUNGS: Scattered coarse breath sounds. HEART: Regular. Borderline tachycardic. I do not appreciate a murmur. ABDOMEN: Somewhat firm. There are no overt peritoneal signs. GENITOURINARY AND RECTAL: Deferred. LABORATORY DATA: TSH is 0.946. Lactic acid, most recently 2.0. Blood cultures sterile thus far collected roughly 24 hours ago. Electrolytes: Sodium 144, potassium 4.3, chloride 104, bicarbonate is 29, anion gap of 11, BUN and creatinine 12 and 0.6 and glucose of 111. SGOT of 44, ALT of 9. Albumin of 2.2, total protein of 6.0. Troponin is 0.16. CBC: White count of 19.0; H and H 9.1, it is down from 11.4, hematocrit 30.2; platelets of 278 with a lymphocytopenia of 3.4%. Ammonia level is 48. Most recent ABGs on 100% FiO2: pH 7.431, pCO2 of 50.9, pO2 of 278.2. Coronavirus testing was negative initially. ASSESSMENT AND PLAN: Pneumonitis. The patient has some underlying lung disease, certainly at risk for infectious complications. Can entirely exclude coronavirus, although given the hypothermic initially, now hyperthermic would be concerned about sepsis with bacterial pneumonitis. We will broaden antimicrobial therapy. Await cultures as well as pending tests. She remains critically ill and overall prognosis appears quite guarded. <ELECTRONICALLY SIGNED> By: Jayson Katz MD 12/21/19 [id number] Jayson Katz MD /nt
[2019-12-21 11:32] VITALS: BP 129/67
--- NOTE | 2019-12-21 12:35 | EKG ---
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 : 1935 Requested By: Philip Stockton Order Number: [id number] MD: Jigar Gordon Measurements Intervals [place] Rate: 129 P: 244 DC: 89 QRS: -23 QRSD: 82 T: 8 QT: 304 QTc: 446 Interpretive Statements Probable atrial flutter with 2:1 AV conduction Left ventricular hypertrophy Poor R wave progression Inferior infarct, old Compared to ECG 12/08/2019 09:01:52 No significant change was found Electronically Signed On 12-21-2019 12:35:06 CDT by Jigar Gordon [email or web address] <ELECTRONICALLY SIGNED> By: Jigar Gordon MD, FACC 12/21/19 1235 9 Jigar Gordon MD, FACC /EPI
[2019-12-21 13:08] LABS: HEMATOCRIT 33.1 % (37.0-47.0); HEMOGLOBIN 10.6 gm/dL (12.0-15.0); MCH 30.8 pg (26.0-34.0); MCHC 31.9 g/dL (28.0-37.0); MCV 96.5 fL (80.0-100.0); RBC 3.44 mil/uL (4.20-5.00); RDW 17.2 % (10.5-14.5); WBC 9.1 thou/uL (4.0-11.0)
[2019-12-21 13:23] LABS: CREATININE 0.7 mg/dL (0.6-1.0); MAGNESIUM 1.9 mg/dL (1.8-2.4); POTASSIUM 3.9 mmol/L (3.5-5.1)
[2019-12-21 13:29] LABS: CHOLESTEROL 250 mg/dL (<200); HDL CHOLESTEROL 109 mg/dL (>40); LDL CHOLESTEROL 118 mg/dL (<100); TC:HDL 2.3 Ratio (Not establshd); TRIGLYCERIDE 118 mg/dL (<150); VLDL 24 mg/dL (<40)
[2019-12-21 13:54] LABS: BE(vivo) 8.6 mmol/L (-2 to +3); HCO3 34.1 mmol/L (22.0-26.0); PCO2 51.9 mmHg (35.0-45.0); PO2 70.8 mmHg (80.0-100.0); pH 7.436 (7.360-7.450); sO2 94.5 % (92.0-98.0)
[2019-12-21 16:56] VITALS: BP 122/68
--- NOTE | 2019-12-21 17:36 | NUR ---
ASSESSMENT CHARTED. PT ALERT AND VERY AWAKE THIS SHIFT. VSS. APPETITE GOOD. FECAL TUBE AND CARROLL IN PLACE. TURNED AND REPOSITIONED Q 2 HOURS AND NEEDED. NEW ORDERS NOTED. PROGRESSING WELL TOWARDS DISCHARGE GOAL.
[2019-12-21 20:55] VITALS: BP 126/73
[2019-12-22 04:08] VITALS: BP 138/69
--- NOTE | 2019-12-22 04:37 | NUR ---
CARE ASSUMED 1900. PT ALERT AND ORIENTED X 2. VITALS STABLE. DENIES PAIN. NO C/O OF SOB, OR CHEST PAIN. REMAINS SR ON THE MONITOR. WILL CONTINUE TO MONITOR.
[2019-12-22 12:00] VITALS: BP 144/73
--- NOTE | 2019-12-22 15:57 | NUR ---
PT ALERT AND AWAKE THIS SHIFT. APPETITE GOOD. FECAL TUBE AND CARROLL DISCONTINUED. DAUGHTER UPDATED ON PT'S PROGRESS. NO CONCERNS AT THIS TIME.
[2019-12-22 16:00] VITALS: BP 144/75
[2019-12-22 18:53] VITALS: BP 110/55
[2019-12-23 04:00] VITALS: BP 145/72
--- NOTE | 2019-12-23 05:46 | NUR ---
PT EASILY AROUSABLE ALL THRO THE NOC. MOSTLY SLEEPING. APPEARS TO BE IN NO DISTRESS. NO COUGH NOTED. REMAINS STABLE ON . SHE HAS HAD SMEARS OF BM. VOIDING PER EXTERNAL CATH, A LITTLE INCONTINENCE ON CHUCKS. BLADDER SCAN2 ABOUT 0400 WITH 167 CC.Q2HR TURNS PROVIDED AND HEELS OFFLOADED.
[2019-12-23 12:56] VITALS: BP 125/70
--- NOTE | 2019-12-23 15:46 | NUR ---
PT ALERT AND AWAKE THIS SHIFT. RT TREATMENT PROVIDED ORDERED. TURNED AR REPOSITIONED Q 2 HOURS AND NEEDED. NO CONCERNS AT THIS TIME. PROGRESSING WELL TOWARDS DISCHARGE GOAL.
[2019-12-23 16:30] VITALS: BP 114/51
[2019-12-23 19:56] VITALS: BP 120/52
--- NOTE | 2019-12-24 04:01 | NUR ---
PT RESTING QUIETLY IN ROOM, REPOSITIONING NEEDED, NO C/O PAIN, VSS, TOLERATING DIET, HOPES TO GO HOME SOON, WILL CON'T TO MONITOER PER PPOC.
[2019-12-24 04:27] VITALS: BP 141/59
[2019-12-24 08:00] VITALS: BP 150/67
--- NOTE | 2019-12-24 10:51 | NUR ---
speech therapy came out from working with pt and stated that the daughter told pt she was not going home for another week. this rn had discussed with dr jacinto this morning that pt daughter did not want her to go to a rehab facility and she wanted her to go home with home health. dr jacinto said pt was able to be discharged today with . dr jacinto had a long discussion with pt daughter this morning. this rn went in after speech reported to me what pt daughter had said, this rn discussed with pt that since she did not want pt to go to a rehab facility she would be able to be sent home today with home health. she stated that she was more than happy to take pt home but that she would not do it today, she said maybe at the end of the week but not today. she states she does not want pt to go home because she has been in bed for two weeks and is not able to walk. she states she wants her to get up and walk around so that she can get up the stairs to the house. informed her that that is why the dr wants her to go to a rehab facility as she is no longer in need of acute inpt care. she states that facilities will not allow visitors so she does not want her to go anywhere. she states that she does not feel she is ready to go home. paged dr jacinto, she asked that this rn talk to sw.
--- NOTE | 2019-12-24 11:32 | NUR ---
PT INCONTINENT OF BOWEL AND BLADDER, PT CLEANED AND NEW EXTERNAL FEMALE CATHETER APPLIED. PT TURNED TO LEFT SIDE
[2019-12-24 12:00] VITALS: BP 112/47
--- NOTE | 2019-12-24 14:37 | NUR ---
FAXED REFERRAL TO [facility] SPOKE WITH MOLLY IN INTAKE SHE RECEIVED REFERRAL AND WILL REVIEW. DP TO FOLLOW.
[2019-12-24 15:38] VITALS: BP 144/77
--- NOTE | 2019-12-24 16:54 | NUR ---
Spoke with dtr who reports SHE DOES NOT WANT SKILLED for her mother. She reports concern cannot see her mother at facility and concern for COVID outbreak at facilities. She is interested in home with HH care. Patient will be going to her home address [address] [place] [address]. Dtr requests [facility]. [facility] is accepting. Dtr wants patient to receive therapy here prior to home. She is made aware that is not accepting as patient cannot tolerate acute rehab. Patient has oxygen at home. She does not want hospice care at this time. She reports maybe in future but for now wants therapy and her mother to progress.
--- NOTE | 2019-12-24 18:41 | NUR ---
PT VERY DROWSY TODAY. FEMALE CATHETER WORKING WELL SINCE REPLACED. DR BAKER HERE TO SEE PT.
[2019-12-24 20:00] VITALS: BP 119/56
[2019-12-25 04:59] VITALS: BP 140/63
[2019-12-25 08:21] VITALS: BP 142/57
--- NOTE | 2019-12-25 14:55 | NUR ---
spoke with dtr. [facility] reports too low level for acute rehab. Offered with dtr possible eval from other acute rehab facilites ie: [facility], [facility], or [facility]. Although dtr can visit she did not want her mom transferred due to COVID exposure and patient vunerable with virus. Cont plan home with HH from [facility].
[2019-12-25 15:15] VITALS: BP 119/51
--- NOTE | 2019-12-25 16:46 | NUR ---
ASSESSMENT CHARTED - MEDS PER APR - PT RAQUEL SMALL AMOUNTS OF DIET AND FLUIDS. - OT STARTED ON CALORIE COUNT THIS SHIFT. PT TURNED Q 3 HOURS FROM DONNA TO EITHER SIDE - TOLERATED WELL. OT REMAINS AT 2 L NC - OT REMIANS VERY DROWSY - DOES ANSWER TO NAME WHEN CALLED - REQUIERING TO BE FEED MEALS. ACCUCHECKS CHARTED - NO COVERAGE NEEDED THIS SHIFT. DAUGHTER CALLED TO CHECK ON PATIENT. APPEARS TO BE RESTING COMFORTABLY AT THE PRESENT TIME.
[2019-12-25 20:45] VITALS: BP 116/51
--- NOTE | 2019-12-26 03:54 | NUR ---
ASSUMED CARE FROM DAY SHIFT , PT ALERT TO SELF , DENIES SOA, INCONINTENT OF SOFT BROWN STOOL, UROLOGIST SHOWS NSR , PT TURNED EVERY 2 HOURS WILL CONITNUE WITH CURRENT PLAN OF CARE.
[2019-12-26 04:45] VITALS: BP 146/66
[2019-12-26 07:28] VITALS: BP 148/58
[2019-12-26 11:02] VITALS: BP 112/42
[2019-12-26 15:02] VITALS: BP 115/51
[2019-12-26 15:26] LABS: CALCIUM 8.6 mg/dL (8.5-10.1); CREATININE 0.6 mg/dL (0.6-1.0); POTASSIUM 3.3 mmol/L (3.5-5.1)
--- NOTE | 2019-12-26 16:37 | NUR ---
ASSUMED CARE OF PT AT SHIFT CHANGE. ASSESSMENTS CHARTED. MEDS GIVEN PER APR. PT ALERT TO SELF. EATING BETTER. PLAN FOR HOME WITH HH SOON. WILL CONTINUE TO MONITOR AND FOLLOW POC.
[2019-12-26 21:15] VITALS: BP 134/62
[2019-12-27] VITALS (7 sets, daily range): BP systolic 106–138; BP diastolic 46–55
--- NOTE | 2019-12-27 07:38 | NUR ---
pt remains alert to self, vss, turn as needed extremities elevated, remains on 2l nc, replaced external catheter after incon't of b&b, will con't to monitor per ppoc.
[2019-12-27 13:07] LABS: CALCIUM 8.7 mg/dL (8.5-10.1); CREATININE 0.6 mg/dL (0.6-1.0); POTASSIUM 3.3 mmol/L (3.5-5.1)
[2019-12-27] MEDS ORDERED: DEMADEX20 MG PO (13:15)
[2019-12-27] MEDS ORDERED: LEVETIRACE100 MG/1 M PO (13:15)
[2019-12-27] MEDS ORDERED: PREDNISONE 20 M20 M1 PO (13:15)
[2019-12-27] MEDS ORDERED: CARDIZEM CD 18180 M3 PO (13:15)
[2019-12-27] MEDS ORDERED: COZAAR 25 MG TA25 M1 PO (13:15)
[2019-12-27] MEDS ORDERED: CARVEDILOL25 MG PO (13:15)
--- NOTE | 2019-12-27 13:50 | NUR ---
PT DISCHARGING HOME TODAY WITH HH FAXED DC ORDERS/SUMMARY TO [facility] SPOKE WITH MOLLY IN INTAKE THEY WILL CALL PT TO ARRANGE VISITS. TRANSPORT ARRANGED BY AMBULANCE ([facility]) FOR 1729 TODAY.
--- NOTE | 2019-12-27 16:20 | NUR ---
Quality Engineer Medical Device visited with pt/dtr Albert at bedside this morning to discuss her care needs and dc planning efforts. [facility] not in network and pt is too weak to tolerate acute rehab. SNF referrals declined by the pt's dtr d/t covid and visitor restrictions. Dtr notes the pt lives with her and she has help from other family members to take her home. She will needs [facility] ambulance transport home as she is max assist of two for transfers and can not tolerate sitting in a w/c at this time. [facility] arranged for 5:30-6pm non emergent transport. Time confirmed with pt's dtr along with HH referral to resume care per [facility] whom they had prior to admission. Pt has needed dme in place. Dtr does not want a hospital bed. Pt has 5steps into the home and 14 up to the bedroom/bathroom. EMS advised as the pt will need to be taken to the 2nd story of the home this evening. DC data recovery planner faxed HH orders and confirmed with [facility] for start of care tomorrow. Dtr feels she and family can meet the pt's care needs in the home. Care team updated on this evenings dc plan.
--- NOTE | 2019-12-27 18:33 | NUR ---
ASSUMED CARE OF PT AT SHIFT CHANGE. ASSESSMENTS CHARTED. MEDS GIVEN PER APR. PT ALERT TO SELF, NO APPARENT PAIN. DAUGHTER AT BEDSIDE PART OF DAY. DISCHARGE ORDERS AND INSTRUCTIONS COMPLETE. PT TRANSPORTED VIA AMBULANCE TO DAUGHTERS HOME.
[2019-12-28] MEDS ORDERED: PREDNISONE 20 M20 M1 PO (18:46)
== END 2019-12-27 18:41 | disposition home health service (06) | DRG 870 ==
LOC: ER 08:41 → EROBS 21:45 → ICU 21:45 → 2N 21:45 → ICU 12-09 08:24 → 2N 12-19 12:12
PROVIDERS: Emergency Medicine; Hospitalist; Internal Medicine Nephrology; Internal Medicine Pulmonary Disease; Nurse Practitioner; Nurse Practitioner Adult Health; Pediatrics; ADMIT Internal Medicine; ATTEND Internal Medicine
PROC: 02HV33Z Insertion of Infusion Device into Superior Vena Cava, Percutaneous Approach (ICD-10-PCS; principal; 2019-12-08)
PROC: 5A09357 Assistance with Respiratory Ventilation, Less than 24 Consecutive Hours, Continuous Positive Airway Pressure (ICD-10-PCS; principal; 2019-12-08)
PROC: 0BH17EZ Insertion of Endotracheal Airway into Trachea, Via Natural or Artificial Opening (ICD-10-PCS; 2019-12-09)
PROC: 5A1955Z Respiratory Ventilation, Greater than 96 Consecutive Hours (ICD-10-PCS; 2019-12-09)
DX: A41.9 Sepsis, unspecified organism (principal); J96.21 Acute and chronic respiratory failure with hypoxia; J96.22 Acute and chronic respiratory failure with hypercapnia; R65.21 Severe sepsis with septic shock; G92 Toxic encephalopathy; J69.0 Pneumonitis due to inhalation of food and vomit; I50.43 Acute on chronic combined systolic (congestive) and diastolic (congestive) heart failure; J44.1 Chronic obstructive pulmonary disease with (acute) exacerbation; E87.0 Hyperosmolality and hypernatremia; G72.81 Critical illness myopathy; E46 Unspecified protein-calorie malnutrition; I47.1 Supraventricular tachycardia; J44.0 Chronic obstructive pulmonary disease with (acute) lower respiratory infection; K21.9 Gastro-esophageal reflux disease without esophagitis; E78.5 Hyperlipidemia, unspecified; I25.10 Atherosclerotic heart disease of native coronary artery without angina pectoris; Z66 Do not resuscitate; J84.10 Pulmonary fibrosis, unspecified; I25.5 Ischemic cardiomyopathy; I95.9 Hypotension, unspecified; G47.33 Obstructive sleep apnea (adult) (pediatric); I11.0 Hypertensive heart disease with heart failure; E87.6 Hypokalemia; I08.1 Rheumatic disorders of both mitral and tricuspid valves; E87.8 Other disorders of electrolyte and fluid balance, not elsewhere classified; G40.909 Epilepsy, unspecified, not intractable, without status epilepticus; E04.8 Other specified nontoxic goiter; D64.9 Anemia, unspecified; R13.10 Dysphagia, unspecified; Z20.828 Contact with and (suspected) exposure to other viral communicable diseases; Z68.28 Body mass index [BMI] 28.0-28.9, adult; Z98.42 Cataract extraction status, left eye; Z98.41 Cataract extraction status, right eye; Z80.3 Family history of malignant neoplasm of breast; Z98.49 Cataract extraction status, unspecified eye; Z28.21 Immunization not carried out because of patient refusal
CPT/HCPCS: 10078; 10081; 27000